=== PATIENT | female | born 1970 | race African-American/Black ===

== ENCOUNTER 2016-07-02 10:21 | Emergency (ER) | payer OTHER ==
[2016-07-02 10:50] VITALS: RESP 18
[2016-07-02] MEDS ORDERED: SODIUM CHLORIDE 0.9% 500 ML IV STA ×2 (11:06→13:23)
--- NOTE | 2016-07-02 11:06 | ED ---
General Adult HPI - General Chief complaint: Recheck/Abnormal Lab/Rx Stated complaint: abnormal labs Time Seen by Provider: 07/02/16 10:58 Source: patient, RN notes reviewed Mode of arrival: ambulatory Limitations: no limitations - History of Present Illness Initial comments: 45-year-old female presents to the emergency department with a chief complaint of abdominal pain. He has had this abdominal pain for about a month. Patient describes it across the upper abdomen. Patient states that she is an alcoholic and drinks about a bottle of wine every day. Patient states his energy refers tremors which is not common for her. Patient states she went for follow-up with her doctor and referred here due to elevated liver enzymes. Patient denies any fever chills cough cold This. Patient denies nausea vomiting patient was concerned or continued worsening symptoms that she thought that she should be evaluated. Patient denies any recent fever, chills, shortness of breath, chest pain, back pain, nausea vomiting, numbness or tingling, dysuria or hematuria, constipation or diarrhea, headaches or visual changes, or any other current symptoms. - Related Data Home Medications Medication Instructions Recorded Confirmed No Known Home Medications [No 07/02/16 07/02/16 Known Home Medications] Allergies Allergy/AdvReac Type Severity Reaction Status Date / Time Penicillins Allergy Unknown Verified 07/02/16 11:01 Review of Systems ROS Statement: Those systems with pertinent positive or pertinent negative responses have been documented in the HPI. ROS Other: All systems not noted in ROS Statement are negative. Past Medical History Past Medical History: No Reported History History of Any Multi-Drug Resistant Organisms: None Reported Past Surgical History: Tonsillectomy, Tubal Ligation Past Psychological History: Panic Disorder Smoking Status: Current every day smoker Past Alcohol Use History: Daily Past Drug Use History: None Reported General Exam - General Exam Comments Initial Comments: General: The patient is awake and alert, in no distress, and does not appear acutely ill. Eye: Pupils are equal, round and reactive to light, extra-ocular movements are intact; there is normal conjunctiva bilaterally. No signs of icterus. Ears, nose, mouth and throat: There are moist mucous membranes. Neck: The neck is supple, there is no tenderness. Cardiovascular: There is a regular rate and rhythm. No murmur, rub or gallop is appreciated. Respiratory: Lungs are clear to auscultation, respirations are non-labored, breath sounds are equal. No wheezes, stridor, rales, or rhonchi. Gastrointestinal: Soft, non-distended, non-tender abdomen without masses or organomegaly noted. There is no rebound or guarding present. No CVA tenderness. Bowel sounds are unremarkable. Back: There is no tenderness to palpation in the midline. There is no obvious deformity. No rashes noted. Musculoskeletal: Normal ROM, no tenderness, There is no pedal edema. There is no calf tenderness or swelling. Sensation intact. Pulses equal bilaterally 2+. Neurological: CN II-XII intact, There are no obvious motor or sensory deficits. Coordination appears grossly intact. Speech is normal. Skin: Skin is warm and dry and no rashes or lesions are noted. Psychiatric: Cooperative, appropriate mood & affect, normal judgment. Limitations: no limitations Course Vital Signs 07/02/16 07/02/16 10:44 16:10 Temperature 98.0 F 96.9 F L Pulse Rate 109 H 82 Respiratory 18 18 Rate Blood Pressure 126/87 125/88 O2 Sat by Pulse 97 99 Oximetry Medical Decision Making - Medical Decision Making 45-year-old female presents emergency Department chief complaint of abdominal pain. At this time lab work was reviewed. Patient does appear to have elevated liver enzymes. As well as dehydration. Patient elected to return to normal after some fluid bolus. We did give Ativan to help with her shakiness which is most likely due to her alcohol use. At this time we did discuss continued follow-up with her doctor. We discussed elevated lactate with is improving with hydration. We discussed continuing hydration. We did discuss to follow-up on the liver enzymes. We did discuss the dehydration component we did discuss appropriate care and return parameters. The patient stated that she understood and all questions have been answered. She states that she is feeling better and she will be discharged at this time. - Lab Data Result diagrams: 07/02/16 11:00 07/02/16 11:00 Lab Results 07/02/16 07/02/16 07/02/16 Range/Units 11:00 11:00 11:00 WBC 3.7 L (3.8-10.6) k/uL RBC 3.23 L (3.80-5.40) m/uL Hgb 11.4 (11.4-16.0) gm/dL Hct 36.4 (34.0-46.0) % MCV 112.7 H (80.0-100.0) fL MCH 35.2 H (25.0-35.0) pg MCHC 31.3 (31.0-37.0) g/dL RDW 16.6 H (11.5-15.5) % Plt Count 221 (150-450) k/uL Neutrophils % 67 % Lymphocytes % 22 % Monocytes % 7 % Eosinophils % 2 % Basophils % 0 % Neutrophils # 2.5 (1.3-7.7) k/uL Lymphocytes # 0.8 L (1.0-4.8) k/uL Monocytes # 0.2 (0-1.0) k/uL Eosinophils # 0.1 (0-0.7) k/uL Basophils # 0.0 (0-0.2) k/uL Manual Slide Review Performed Poikilocytosis (manual Present Anisocytosis Slight Macrocytosis Marked Target Cells Present PT 10.7 (9.0-12.0) sec INR 1.1 (<1.1) APTT 25.8 (22.0-30.0) sec Sodium 142 (137-145) mmol/L Potassium 4.1 (3.5-5.1) mmol/L Chloride 103 (98-107) mmol/L Carbon Dioxide 25 (22-30) mmol/L Anion Gap 14 mmol/L BUN <2 L (7-17) mg/dL Creatinine 0.38 L (0.52-1.04) mg/dL Est GFR (MDRD) Af Amer >60 (>60 ml/min/1.73 sqM) Est GFR (MDRD) Non-Af >60 (>60 ml/min/1.73 sqM) Glucose 89 (74-99) mg/dL Plasma Lactic Acid Maxime (0.7-2.0) mmol/L Calcium 9.2 (8.4-10.2) mg/dL Total Bilirubin 1.3 (0.2-1.3) mg/dL AST 441 H (14-36) U/L ALT 66 H (9-52) U/L Alkaline Phosphatase 291 H (38-126) U/L Ammonia (<30) umol/L Total Protein 7.4 (6.3-8.2) g/dL Albumin 3.9 (3.5-5.0) g/dL Amylase 99 (30-110) U/L Lipase 156 (23-300) U/L Urine Color Urine Appearance (Clear) Urine pH (5.0-8.0) Ur Specific Avant (1.001-1.035) Urine Protein (Negative) Urine Glucose (UA) (Negative) Urine Ketones (Negative) Urine Blood (Negative) Urine Nitrite (Negative) Urine Bilirubin (Negative) Urine Urobilinogen (<2.0) mg/dL Ur Leukocyte Esterase (Negative) Hepatitis A IgM Ab Hep Bs Antigen Hep B Core IgM Ab Hep C IgG Ab (Negative) 07/02/16 07/02/16 07/02/16 Range/Units 11:00 11:47 13:43 WBC (3.8-10.6) k/uL RBC (3.80-5.40) m/uL Hgb (11.4-16.0) gm/dL Hct (34.0-46.0) % MCV (80.0-100.0) fL MCH (25.0-35.0) pg MCHC (31.0-37.0) g/dL RDW (11.5-15.5) % Plt Count (150-450) k/uL Neutrophils % % Lymphocytes % % Monocytes % % Eosinophils % % Basophils % % Neutrophils # (1.3-7.7) k/uL Lymphocytes # (1.0-4.8) k/uL Monocytes # (0-1.0) k/uL Eosinophils # (0-0.7) k/uL Basophils # (0-0.2) k/uL Manual Slide Review Poikilocytosis (manual Anisocytosis Macrocytosis Target Cells PT (9.0-12.0) sec INR (<1.1) APTT (22.0-30.0) sec Sodium (137-145) mmol/L Potassium (3.5-5.1) mmol/L Chloride (98-107) mmol/L Carbon Dioxide (22-30) mmol/L Anion Gap mmol/L BUN (7-17) mg/dL Creatinine (0.52-1.04) mg/dL Est GFR (MDRD) Af Amer (>60 ml/min/1.73 sqM) Est GFR (MDRD) Non-Af (>60 ml/min/1.73 sqM) Glucose (74-99) mg/dL Plasma Lactic Acid Maxime 2.4 H* (0.7-2.0) mmol/L Calcium (8.4-10.2) mg/dL Total Bilirubin (0.2-1.3) mg/dL AST (14-36) U/L ALT (9-52) U/L Alkaline Phosphatase (38-126) U/L Ammonia 18 (<30) umol/L Total Protein (6.3-8.2) g/dL Albumin (3.5-5.0) g/dL Amylase (30-110) U/L Lipase (23-300) U/L Urine Color Yellow Urine Appearance Clear (Clear) Urine pH 8.0 (5.0-8.0) Ur Specific Avant 1.010 (1.001-1.035) Urine Protein Negative (Negative) Urine Glucose (UA) Negative (Negative) Urine Ketones 1+ H (Negative) Urine Blood Negative (Negative) Urine Nitrite Negative (Negative) Urine Bilirubin Negative (Negative) Urine Urobilinogen <2.0 (<2.0) mg/dL Ur Leukocyte Esterase Negative (Negative) Hepatitis A IgM Ab NEGATIVE Hep Bs Antigen Negative Hep B Core IgM Ab NEGATIVE Hep C IgG Ab Negative (Negative) 07/02/16 Range/Units 16:10 WBC (3.8-10.6) k/uL RBC (3.80-5.40) m/uL Hgb (11.4-16.0) gm/dL Hct (34.0-46.0) % MCV (80.0-100.0) fL MCH (25.0-35.0) pg MCHC (31.0-37.0) g/dL RDW (11.5-15.5) % Plt Count (150-450) k/uL Neutrophils % % Lymphocytes % % Monocytes % % Eosinophils % % Basophils % % Neutrophils # (1.3-7.7) k/uL Lymphocytes # (1.0-4.8) k/uL Monocytes # (0-1.0) k/uL Eosinophils # (0-0.7) k/uL Basophils # (0-0.2) k/uL Manual Slide Review Poikilocytosis (manual Anisocytosis Macrocytosis Target Cells PT (9.0-12.0) sec INR (<1.1) APTT (22.0-30.0) sec Sodium (137-145) mmol/L Potassium (3.5-5.1) mmol/L Chloride (98-107) mmol/L Carbon Dioxide (22-30) mmol/L Anion Gap mmol/L BUN (7-17) mg/dL Creatinine (0.52-1.04) mg/dL Est GFR (MDRD) Af Amer (>60 ml/min/1.73 sqM) Est GFR (MDRD) Non-Af (>60 ml/min/1.73 sqM) Glucose (74-99) mg/dL Plasma Lactic Acid Maxime 2.1 H (0.7-2.0) mmol/L Calcium (8.4-10.2) mg/dL Total Bilirubin (0.2-1.3) mg/dL AST (14-36) U/L ALT (9-52) U/L Alkaline Phosphatase (38-126) U/L Ammonia (<30) umol/L Total Protein (6.3-8.2) g/dL Albumin (3.5-5.0) g/dL Amylase (30-110) U/L Lipase (23-300) U/L Urine Color Urine Appearance (Clear) Urine pH (5.0-8.0) Ur Specific Avant (1.001-1.035) Urine Protein (Negative) Urine Glucose (UA) (Negative) Urine Ketones (Negative) Urine Blood (Negative) Urine Nitrite (Negative) Urine Bilirubin (Negative) Urine Urobilinogen (<2.0) mg/dL Ur Leukocyte Esterase (Negative) Hepatitis A IgM Ab Hep Bs Antigen Hep B Core IgM Ab Hep C IgG Ab (Negative) - Radiology Data Radiology results: report reviewed, image reviewed Disposition Clinical Impression: Dehydration, Elevated liver enzymes, Alcoholism Disposition: HOME SELF-CARE Condition: Stable Instructions: Alcohol Use Disorder (ED) Additional Instructions: Please use medication as discussed. Please follow up with family doctor if symptoms have not improved over the next two days. Please return to the emergency room if your symptoms increase or worsen or for any other concerns. Referrals: Carla Ngo MD [Primary Care Provider] - 1-2 days Time of Disposition: 16:55
[2016-07-02] MEDS ORDERED: LORazepam 2 MG/ML SYRINGE IV STA ×2 (11:07→15:16)
[2016-07-02 11:33] LABS: Anisocytosis Slight; Basophils % (A) 0 %; CH 35.6; CHCM 31.7; Eosinophils # (A) 0.1 k/uL (0-0.7); Eosinophils % (A) 2 %; HCT 36.4 % (34.0-46.0); HDW 2.13; HGB 11.4 gm/dL (11.4-16.0); Luc # (Auto) 0.09; Luc % (Auto) 2; Lymphocytes # (A) 0.8 k/uL (1.0-4.8); Lymphocytes % (A) 22 %; MCH 35.2 pg (25.0-35.0); MCHC 31.3 g/dL (31.0-37.0); MCV 112.7 fL (80.0-100.0); Macrocytosis Marked; Mean Platelet Volume 7.9; Monocytes # (A) 0.2 k/uL (0-1.0); Monocytes % (A) 7 %; Neutrophils # (A) 2.5 k/uL (1.3-7.7); Neutrophils % (A) 67 %; RBC 3.23 m/uL (3.80-5.40); RDW 16.6 % (11.5-15.5); WBC 3.7 k/uL (3.8-10.6); WBC (Perox) 3.79
[2016-07-02 11:45] LABS: INR 1.1 (<1.1); Partial Thromboplastin Time 25.8 sec (22.0-30.0); Prothrombin Time 10.7 sec (9.0-12.0)
[2016-07-02 11:47] LABS: ALT 66 U/L (9-52); AST 441 U/L (14-36); Alkaline Phosphatase 291 U/L (38-126); Amylase 99 U/L (30-110); Anion Gap 14 mmol/L; Blood Urea Nitrogen <2 mg/dL (7-17); Calcium 9.2 mg/dL (8.4-10.2); Carbon Dioxide 25 mmol/L (22-30); Chloride 103 mmol/L (98-107); Glucose 89 mg/dL (74-99); Non-African American GFR(MDRD) >60 (>60 ml/min/1.73 sqM); Potassium 4.1 mmol/L (3.5-5.1); Sodium 142 mmol/L (137-145); Total Bilirubin 1.3 mg/dL (0.2-1.3); Total Protein 7.4 g/dL (6.3-8.2)
[2016-07-02] MEDS ORDERED: HYDROmorphone 1 MG/ML 1 ML SYRINGE IVP STA (11:53)
[2016-07-02 12:04] LABS: Manual Review Performed
[2016-07-02 12:08] LABS: Target Cells Present
--- NOTE | 2016-07-02 12:48 | XR ---
EXAMINATION TYPE: XR abdomen 2V DATE OF EXAM: 07/02/2016 12:19 PM CLINICAL HISTORY: Elevated liver enzymes with upper abdominal tightness and pain. TECHNIQUE: Supine and upright views of the abdomen are obtained. COMPARISON: None. FINDINGS: Scattered gas is seen in non-distended stomach and small bowel loops. Gas and fecal mater ial is seen in non-distended colon. There is a right-sided pelvic phleboliths. No pneumoperitoneum i s seen. No suspicious calcification is identified. Lung bases are clear. Visualized osseous structure s are intact. IMPRESSION: Overall nonobstructive bowel gas pattern.
--- NOTE | 2016-07-02 13:05 | US ---
EXAMINATION TYPE: US abdomen limited DATE OF EXAM: 07/02/2016 12:45 PM COMPARISON: NONE CLINICAL HISTORY: RUQ pain. Abdominal pain EXAM MEASUREMENTS: Liver Length: 20.4 cm Gallbladder Wall: 0.3 cm CBD: 0.4 cm Right Kidney: 12.8 x 3.3 x 4.2 cm Pancreas: limited evaluation due to overlying bowel Liver: enlarged, attenuating, heterogeneous Gallbladder: echogenic material noted dependently Evidence for sonographic Joyner's sign: no CBD: appears wnl Right Kidney: enlarged, no evidence of hydronephrosis IMPRESSION: Fatty liver. Otherwise limited evaluation.
[2016-07-02 13:23] LABS: Hepatitis B Surface Ag Index 0.05
[2016-07-02 13:29] LABS: Hepatitis B Core IgM Index 0.04
[2016-07-02 13:41] LABS: Hepatitis C Virus IgG Index 0.02
[2016-07-02 13:42] LABS: Hepatitis C Virus IgG Ab Negative (Negative)
[2016-07-02 14:42] LABS: Appearance,Urine Clear (Clear); Bilirubin,Urine Negative (Negative); Glucose,Urine (UA) Negative (Negative); Ketones,Urine 1+ (Negative); Leukocyte Esterase,Urine Negative (Negative); Nitrite,Urine Negative (Negative); Protein,Urine Negative (Negative); UA Billing (MACRO vs. MICRO) CHEM; Urobilinogen,Urine <2.0 mg/dL (<2.0)
[2016-07-02 16:11] VITALS: BP 125/88; PULSE 82; TEMP 96.9
== END 2016-07-02 17:05 | disposition home or self-care (01) ==
LOC: EC 10:21
DX: F10.20 Alcohol dependence, uncomplicated (principal); E86.0 Dehydration; R74.8 Abnormal levels of other serum enzymes; R10.9 Unspecified abdominal pain; F17.200 Nicotine dependence, unspecified, uncomplicated; Z88.0 Allergy status to penicillin
CPT/HCPCS: 36415; 80053; 80074; 82140; 82150; 83605; 83690; 85025; 85610; 85730; 81003; 74020; 76705; 99284; 96374; 96375; 96376; 96361 ×2; J2060; J1170

== ENCOUNTER → 2016-07-03 | Outpatient (CLI) | payer OTHER ==
--- NOTE | 2016-07-04 09:59 | MM ---
Reason for exam: screening (asymptomatic). Last mammogram was performed 2 years and 1 month ago. History: Patient is postmenopausal. Family history of breast cancer in mother at age 64. Physical Findings: A clinical breast exam by your physician is recommended on an annual basis and results should be correlated with mammographic findings. MG Screening Mammo w CAD Bilateral CC and MLO view(s) were taken. Prior study comparison: June 14, 2014, bilateral MG screening mammo w CAD. The breast tissue is extremely dense which could obscure a lesion on mammography. Vascular calcifications. No significant changes when compared with prior studies. ASSESSMENT: Benign, BI-RAD 2 RECOMMENDATION: Routine screening mammogram of both breasts in 1 year.
== END | disposition home or self-care (01) ==
LOC: RADMAMWWP 08:50
PROVIDERS: ATTEND Family Medicine
DX: Z12.31 Encounter for screening mammogram for malignant neoplasm of breast (principal)

== ENCOUNTER 2016-10-19 16:29 | Observation (INO) | payer OTHER ==
[2016-10-19] MEDS ORDERED: ONDANSETRON 4 MG/2 ML VIAL IVP STA (16:49)
[2016-10-19] MEDS ORDERED: SODIUM CHLORIDE 0.9% 1,000 ML IV STA (16:49)
--- NOTE | 2016-10-19 16:52 | ED ---
General Adult HPI - General Chief complaint: Nausea/Vomiting/Diarrhea Stated complaint: Vomiting Time Seen by Provider: 10/19/16 16:30 Source: patient, RN notes reviewed Mode of arrival: wheelchair Limitations: no limitations - History of Present Illness Initial comments: This is a 45-year-old female who presents emergency department stating that she has no medical problems except for some anxiety. Patient comes in today stating that for the last 4 days she's not been able to keep any solid foods down. Patient states she started noticing a decrease in her diet about 3 weeks ago. Patient has not followed up with primary medical care doctor. Patient denies any fever chills per patient denies any diarrhea. Patient denies any abdominal pain. Patient denies any dysuria hematuria urinary frequency. Patient denies any difficulty breathing or shortness of breath. Patient states aside from the vomiting she has no other symptoms. Patient does feel weaker because she hasn't eaten for days. - Related Data Home Medications Medication Instructions Recorded Confirmed No Known Home Medications [No 07/02/16 10/19/16 Known Home Medications] Allergies Allergy/AdvReac Type Severity Reaction Status Date / Time Penicillins Allergy Swelling Verified 10/19/16 17:00 Review of Systems ROS Statement: Those systems with pertinent positive or pertinent negative responses have been documented in the HPI. ROS Other: All systems not noted in ROS Statement are negative. Past Medical History Past Medical History: No Reported History History of Any Multi-Drug Resistant Organisms: None Reported Past Surgical History: Tonsillectomy, Tubal Ligation Past Psychological History: Anxiety, Panic Disorder Smoking Status: Current every day smoker Past Alcohol Use History: Daily Past Drug Use History: None Reported General Exam - General Exam Comments Initial Comments: GENERAL: Patient is nontoxic and well-hydrated and is in no acute distress. Patient is cachectic in appearance ENT: Neck is soft and supple. No significant lymphadenopathy is noted. Oropharynx is clear. Moist mucous membranes. Neck has full range of motion without eliciting any pain. EYES: The sclera were anicteric and conjunctiva were pink and moist. Extraocular movements were intact and pupils were equal round and reactive to light. Eyelids were unremarkable. PULMONARY: Unlabored respirations. Good breath sounds bilaterally. No audible rales rhonchi or wheezing was noted. CARDIOVASCULAR: There is a regular rate and rhythm without any murmurs gallops or rubs. ABDOMEN: Soft and nontender with normal bowel sounds. No palpable organomegaly was noted. There is no palpable pulsatile mass. SKIN: Skin is clear with no lesions or rashes and otherwise unremarkable. NEUROLOGIC: Patient is alert and oriented x3. Cranial nerves II through XII are grossly intact. Motor and sensory are also intact. Normal speech, volume and content. Symmetrical smile. MUSCULOSKELETAL: Normal extremities with adequate strength and full range of motion. LYMPHATICS: No significant lymphadenopathy is noted PSYCHIATRIC: Normal psychiatric evaluation. Limitations: no limitations Course Vital Signs 10/19/16 10/19/16 16:32 18:03 Temperature 97.2 F L Pulse Rate 135 H 110 H Respiratory 18 18 Rate Blood Pressure 97/69 126/89 O2 Sat by Pulse 99 100 Oximetry Medical Decision Making - Lab Data Result diagrams: 10/19/16 17:06 10/19/16 17:06 Lab Results 10/19/16 10/19/16 10/19/16 Range/Units 17:06 17:06 18:33 WBC 7.9 (3.8-10.6) k/uL RBC 3.83 (3.80-5.40) m/uL Hgb 12.9 (11.4-16.0) gm/dL Hct 37.3 (34.0-46.0) % MCV 97.4 (80.0-100.0) fL MCH 33.7 (25.0-35.0) pg MCHC 34.5 (31.0-37.0) g/dL RDW 14.5 (11.5-15.5) % Plt Count 200 (150-450) k/uL Neutrophils % 83 % Lymphocytes % 8 % Monocytes % 7 % Eosinophils % 1 % Basophils % 0 % Neutrophils # 6.6 (1.3-7.7) k/uL Lymphocytes # 0.6 L (1.0-4.8) k/uL Monocytes # 0.5 (0-1.0) k/uL Eosinophils # 0.0 (0-0.7) k/uL Basophils # 0.0 (0-0.2) k/uL Sodium 137 (137-145) mmol/L Potassium 2.7 L* (3.5-5.1) mmol/L Chloride 92 L (98-107) mmol/L Carbon Dioxide 15 L (22-30) mmol/L Anion Gap 30 mmol/L BUN 8 (7-17) mg/dL Creatinine 1.04 (0.52-1.04) mg/dL Est GFR (MDRD) Af Amer >60 (>60 ml/min/1.73 sqM) Est GFR (MDRD) Non-Af 57 (>60 ml/min/1.73 sqM) Glucose 220 H (74-99) mg/dL Calcium 11.3 H (8.4-10.2) mg/dL Total Bilirubin 4.6 H (0.2-1.3) mg/dL AST 180 H (14-36) U/L ALT 56 H (9-52) U/L Alkaline Phosphatase 374 H (38-126) U/L Total Protein 10.6 H (6.3-8.2) g/dL Albumin 5.3 H (3.5-5.0) g/dL Amylase 91 (30-110) U/L Lipase 301 H (23-300) U/L Serum Alcohol <10 mg/dL Disposition Clinical Impression: Alcoholism, Alcoholic hepatitis, Acute vomiting Disposition: ADMITTED IP TO THIS HOSP Referrals: Carla Ngo MD [Primary Care Provider] - 1-2 days Time of Disposition: 19:12
[2016-10-19 17:22] LABS: Basophils % (A) 0 %; CH 34.1; CHCM 35.2; Eosinophils % (A) 1 %; HCT 37.3 % (34.0-46.0); HDW 2.76; HGB 12.9 gm/dL (11.4-16.0); Luc # (Auto) 0.15; Luc % (Auto) 2; Lymphocytes # (A) 0.6 k/uL (1.0-4.8); Lymphocytes % (A) 8 %; MCH 33.7 pg (25.0-35.0); MCHC 34.5 g/dL (31.0-37.0); MCV 97.4 fL (80.0-100.0); Mean Platelet Volume 8.1; Monocytes # (A) 0.5 k/uL (0-1.0); Monocytes % (A) 7 %; Neutrophils # (A) 6.6 k/uL (1.3-7.7); Neutrophils % (A) 83 %; RBC 3.83 m/uL (3.80-5.40); RDW 14.5 % (11.5-15.5); WBC 7.9 k/uL (3.8-10.6); WBC (Perox) 7.89
[2016-10-19 17:36] LABS: ALT 56 U/L (9-52); AST 180 U/L (14-36); Alkaline Phosphatase 374 U/L (38-126); Amylase 91 U/L (30-110); Anion Gap 30 mmol/L; Blood Urea Nitrogen 8 mg/dL (7-17); Calcium 11.3 mg/dL (8.4-10.2); Carbon Dioxide 15 mmol/L (22-30); Chloride 92 mmol/L (98-107); Glucose 220 mg/dL (74-99); Non-African American GFR(MDRD) 57 (>60 ml/min/1.73 sqM); Sodium 137 mmol/L (137-145); Total Bilirubin 4.6 mg/dL (0.2-1.3); Total Protein 10.6 g/dL (6.3-8.2)
[2016-10-19 17:38] LABS: Potassium 2.7 mmol/L (3.5-5.1)
[2016-10-19] MEDS ORDERED: POTASSIUM CHLORIDE ER 20 MEQ TAB.ER PO STA (17:40)
[2016-10-19] MEDS ORDERED: POTASSIUM CHLORIDE 10 MEQ, LIDOCAINE 2% INJ 10 MG in SODIUM CHLORIDE 0.9% 100 ML IVPB STA (17:47)
--- NOTE | 2016-10-19 17:58 | XR ---
Exam: Abdomen complete 2 views the abdomen were obtained FINDINGS: There is a nonspecific bowel gas pattern. There is a relative paucity of bowel gas in right hemiabdom en of unknown significance. There is a so-called Ezra's lobe. There is no evidence of a bowel obstr uction. There is no evidence of impaction. Osseous structures appear to have multiple lucencies which is of unknown significance or etiology. Correlation is recommended. IMPRESSION: There is a relative paucity of bowel gas. Osseous structures have questionable lucencies. Correlation with previous studies is recommended.
[2016-10-19 18:53] LABS: Alcohol <10 mg/dL
--- NOTE | 2016-10-19 19:04 | US ---
EXAMINATION TYPE: US gallbladder DATE OF EXAM: 10/19/2016 COMPARISON: NONE CLINICAL HISTORY: Pain. Vomiting x 5 days, loss of appetite EXAM MEASUREMENTS: Liver Length: 18.8 cm Gallbladder Wall: 0.3 cm CBD: 0.3 cm Right Kidney: 13.4 x 3.4 x 4.9 cm Pancreas: limited evaluation Liver: enlarged, attenuating Gallbladder: hydropic (measuring 10.4cm), sludge noted Evidence for sonographic Joyner's sign: No CBD: appears wnl Right Kidney: enlarged, no evidence of hydronephrosis or mass IMPRESSION: The gallbladder appears distended and filled with sludge. There is no pericholecystic flu id and the common duct is within normal limits. Heterogeneous liver is again noted which has been pre viously described.
[2016-10-19 19:11] LABS: Hepatitis B Surface Ag Index 0.05
[2016-10-19] MEDS ORDERED: SODIUM CHLORIDE 0.9% 1,000 ML IV ONE (19:13)
[2016-10-19] MEDS ORDERED: ONDANSETRON 4 MG/2 ML VIAL IVP PRN (19:16)
[2016-10-19 19:17] LABS: Hepatitis B Core IgM Index 0.03
[2016-10-19 19:29] LABS: Hepatitis C Virus IgG Ab Negative (Negative); Hepatitis C Virus IgG Index 0.06
[2016-10-19 19:41] LABS: Appearance,Urine Cloudy (Clear); Bacteria,Urine Many /hpf; Bilirubin,Urine 2+ (Negative); Glucose,Urine (UA) Trace (Negative); Ketones,Urine 2+ (Negative); Leukocyte Esterase,Urine Negative (Negative); Mucus,Urine Few /hpf; Nitrite,Urine Negative (Negative); PH, Urine 6.5 (5.0-8.0); Particle Count 12387; Protein,Urine 2+ (Negative); RBC,Urine 2 /hpf (0-5); Specific Gravity,Urine 1.019 (1.001-1.035); Squamous Epithelial Cell,Urine 12 /hpf (0-4); UA Billing (MACRO vs. MICRO) MICRO; WBC,Urine 6 /hpf (0-5)
[2016-10-19 20:02] VITALS: BMI 17.9
[2016-10-19 21:30] LABS: Anion Gap 22 mmol/L; Blood Urea Nitrogen 8 mg/dL (7-17); Calcium 9.9 mg/dL (8.4-10.2); Carbon Dioxide 16 mmol/L (22-30); Chloride 100 mmol/L (98-107); Glucose 111 mg/dL (74-99); Magnesium 1.7 mg/dL (1.6-2.3); Non-African American GFR(MDRD) >60 (>60 ml/min/1.73 sqM); Sodium 138 mmol/L (137-145)
[2016-10-19 21:41] LABS: Phosphorus 0.8 mg/dL (2.5-4.5)
[2016-10-19] MEDS ORDERED: Phosphorus Replacement Protoco 1 EACH MISC MISCELLANE PRN (21:54)
[2016-10-19] MEDS ORDERED: Magnesium Replacement Protocol 1 EACH MISC MISCELLANE PRN (21:55)
[2016-10-19] MEDS ORDERED: HYDROmorphone 1 MG/ML 1 ML SYRINGE IVP PRN (22:01)
[2016-10-19] MEDS ORDERED: THIAMINE 100 MG/ML 2 ML VIAL IM STA (22:03)
[2016-10-19] MEDS ORDERED: LORazepam 2 MG/ML INJ IV PRN ×3 (22:03)
[2016-10-19] MEDS: POTASSIUM CHLORIDE 20 MEQ, LIDOCAINE 2% INJ 20 MG in SODIUM CHLORIDE 0.9% 100 ML IVPB SCH (23:12)
[2016-10-19] MEDS: MAGNESIUM SULFATE-D5W PMX 1 GM in DEXTROSE/WATER 1 100ML.BAG IVPB SCH (23:12)
[2016-10-20] MEDS: MAGNESIUM SULFATE-D5W PMX 1 GM in DEXTROSE/WATER 1 100ML.BAG IVPB SCH (00:12)
[2016-10-20] MEDS: SODIUM PHOSPHATE 10 MMOL in SODIUM CHLORIDE 0.9% 250 ML IVPB SCH ×3 (01:50→10:48)
[2016-10-20] MEDS: POTASSIUM CHLORIDE 20 MEQ, LIDOCAINE 2% INJ 20 MG in SODIUM CHLORIDE 0.9% 100 ML IVPB SCH ×2 (04:24→06:33)
--- NOTE | 2016-10-20 11:29 | CONS ---
REQUESTING PHYSICIAN: Dr. Ngo REASON FOR CONSULTATION: Elevated liver enzymes. HISTORY OF PRESENT ILLNESS: The patient is a 45-year-old -[place] female who was admitted to the hospital because of not feeling well, nausea, vomiting for the last five days duration. She has a history of heavy alcohol abuse for the last 10 years and she initially drinks a litter of liquor a day. She never had any history of liver disease in the past. No history of jaundice or hepatitis. She started feeling week and tired and had severe nausea and vomiting for the last four days. She has been having decreased appetite for about 3 weeks. She reports no abdominal pain. Denies any rectal bleeding or melena. She did have some diarrhea yesterday. She came to the emergency room and was noted to have elevated serum transaminases and hence, we are consulted in regards to this issue. No prior history of chronic liver disease. This morning she is feeling better. Nausea and vomiting has resolved. She states she is very hungry. PAST MEDICAL HISTORY: Unremarkable. PAST SURGICAL HISTORY: Tonsillectomy. MEDICATIONS AT HOME: None. ALLERGIES: PENICILLIN. SOCIAL HISTORY: Alcohol use on a daily basis as described above. Chronic smoker. FAMILY HISTORY: Unremarkable. REVIEW OF SYSTEMS: CARDIOPULMONARY: No chest pain, shortness of breath. GENITOURINARY: No dysuria or hematuria. MUSCULOSKELETAL: Unremarkable. SKIN: Unremarkable. ENDOCRINE: Unremarkable. PSYCHIATRIC: Unremarkable. NEUROLOGICAL: Unremarkable. ENT/VISION: Unremarkable. CONSTITUTIONAL: No recent weight loss. No fever, chills or night sweats. PHYSICAL EXAMINATION: She appears comfortable in no apparent distress. Vital signs are stable. Blood pressure 97/69, pulse rate 135, temperature 97.2. HEENT: Unremarkable. Conjunctivae pink. Sclerae anicteric. Oral cavity no lesions. NECK: No JVD. No lymph node enlargement. CHEST: Clear to auscultation. HEART: Regular rate and rhythm. ABDOMEN: Soft, bowel sounds are positive. No organomegaly. The liver was hard in consistency and was palpable below the right costal margin. No free fluid noted. EXTREMITIES: No pedal edema. SKIN: No rashes. NEURO: Alert, oriented x3. No focal deficits. LABS: At the time of admission to the hospital; WBC 7.9, hemoglobin 12.3, platelets are normal. Sodium 137, potassium 2.7, chloride 92, CO2 is 15. BUN and creatinine are within normal limits. T-bili is 4.6, AST 180, ALT 556, alk phos 374. Albumin 5.3, amylase and lipase 91 and 301 respectively. Hepatitis serologies for A, B and C were negative. Serum alcohol level was less than 10. Ultrasound of the abdomen showed slightly distended gallbladder filled with sludge but no pericholecystic fluid noted. CBD is within normal limits. IMPRESSION: This is a lady with history of heavy alcohol abuse of several years duration presents to the hospital with fatigue, weakness, not feeling well, and nausea and vomiting for the last one week duration. Her biochemical picture is consistent with acute alcoholic hepatitis. RECOMMENDATIONS: I had a lengthy discussion with the patient regarding acute alcoholic hepatitis and at this time I encouraged her that she remain abstinent from alcohol. For now we will start her on a regular diet and continue with symptomatic and supportive care with antiemetics and proton pump inhibitors. Once the symptoms improve she can be discharged home with an outpatient follow up on close basis. Thank you for this consultation. LAZARUS
[2016-10-20] MEDS: THIAMINE 100 MG TAB PO SCH ×2 (12:14→16:44)
[2016-10-20] MEDS ORDERED: ALPRAZolam 0.25 MG TAB PO PRN (16:10)
[2016-10-20] MEDS ORDERED: HYDROcodone/APAP 5-325MG 1 EACH TAB PO PRN (16:10)
[2016-10-20] MEDS ORDERED: TEMAZEPAM 15 MG CAP PO PRN (16:10)
[2016-10-20] MEDS: NICOTINE 14MG/24HR PATCH TRANSDERM SCH (16:44)
[2016-10-20] MEDS: 0.9% NACL WITH KCL 40 MEQ/L 1,000 ML IV SCH (16:44)
[2016-10-20] MEDS: POTASSIUM CHLORIDE 10 MEQ, LIDOCAINE 2% INJ 10 MG in SODIUM CHLORIDE 0.9% 100 ML IV SCH ×2 (16:44→18:02)
--- NOTE | 2016-10-20 19:30 | HP ---
DATE OF ADMISSION: 10/19/16 CHIEF COMPLAINT: Nausea and vomiting, diarrhea, abdominal discomfort. HISTORY OF PRESENT ILLNESS: This 45-year-old woman with past medical history of multiple medical problems including history of ETOH, history of anxiety, panic attacks, being followed by Dr. Carla Ngo in the outpatient setting was complaining of upper abdominal pain and nausea and vomiting also. The patient unable to keep anything down. The patient came to [facility] and was admitted to the hospital for further evaluation and treatment. There is no history of fever, rigors, chills. No history of headache, loss of consciousness or seizures. The patient has significant history of ETOH and last ETOH abuse was about 7 days ago according to him. On admission, AST and ALT was elevated indicating acute alcoholic hepatitis. The patient was also dehydrated. Past medical history of ETOH. Anxiety. Panic attacks. Medications prior to admission are: None. ALLERGIES: LATEX, PENICILLIN. FAMILY HISTORY: History of cancer, left mastectomy in the family. Bone cancer. SOCIAL HISTORY: History of smoking and alcohol. REVIEW OF SYSTEMS: HEENT: No diminished vision. No diminished hearing. Cardiovascular system: No angina or palpitations. Respiratory: As mentioned earlier. GI: As mentioned earlier. : No dysuria. Nervous system: No numbness or weakness. Allergy/Immunology: No asthma or hayfever. Musculoskeletal: As mentioned earlier. Hematology/oncology: No history of anemia. Endocrine: No history of diabetes or hypothyroidism. Constitutional : As mentioned earlier. Dermatology: Negative. Rheumatology: Negative. Psychiatry: As mentioned earlier. PHYSICAL EXAMINATION: The patient is alert and oriented times three. Pulse 101. Blood pressure 96/62. Respiratory rate 16, temperature 98.5 degrees. Pulse ox 92% on room air. HEENT: Conjunctivae normal. Oral mucosa moist. NECK: No JVD. Cardiovascular: S1, S2 muffled. Respiratory: Breath sounds diminished at the bases. A few scattered rhonchi and no crackles. Abdomen is soft. Nontender. No mass palpable. Legs: No edema. No swelling. Nervous system: Higher functions as mentioned earlier. Moves all four limbs. No focal motor or sensory deficits. Lymphatics: No lymph nodes palpable in the neck, axillae or groin. SKIN: No ulcer, rash or bleeding. LABS: At this time shows CBC within normal limits. Potassium 3. Phosphorus 0.8. AST 180. ALT 56. UA noted. Hepatitis panel is negative. ASSESSMENT: 1. Abdominal pain and nausea, possible acute gastritis and acute alcoholic hepatitis. 2. History of ETOH. 3. History of hypokalemia. 4. Hypophosphatemia. 5. Hypobilirubinemia. 6. History of nicotine dependence. 7. History of anxiety, panic disorder. RECOMMENDATIONS AND DISCUSSION: Continue the current medications, continue symptomatic treatment. Otherwise, we will monitor the patient closely. Repeat labs will be ordered. Alcohol cessation advised. Recommended. Guarded prognosis because of multiple medical issues. Further recommendations o follow. Ativan. MTDD
[2016-10-20] MEDS: HEPARIN SODIUM,PORCINE 5,000 UNIT/ML 1 ML VIAL SQ SCH (20:20)
[2016-10-21] MEDS: 0.9% NACL WITH KCL 40 MEQ/L 1,000 ML IV SCH (05:39)
[2016-10-21] MEDS ORDERED: PANTOPRAZOLE 40 MG TABLET PO SCH (07:30)
[2016-10-21 07:41] LABS: ALT 52 U/L (9-52); AST 275 U/L (14-36); Alkaline Phosphatase 196 U/L (38-126); Anion Gap 7 mmol/L; Blood Urea Nitrogen <2 mg/dL (7-17); Calcium 7.5 mg/dL (8.4-10.2); Carbon Dioxide 23 mmol/L (22-30); Chloride 103 mmol/L (98-107); Glucose 71 mg/dL (74-99); Non-African American GFR(MDRD) >60 (>60 ml/min/1.73 sqM); Potassium 3.1 mmol/L (3.5-5.1); Sodium 133 mmol/L (137-145); Total Bilirubin 2.6 mg/dL (0.2-1.3); Total Protein 5.4 g/dL (6.3-8.2)
[2016-10-21 07:56] LABS: Basophils % (A) 0 %; CH 33.4; CHCM 33.3; Eosinophils # (A) 0.1 k/uL (0-0.7); Eosinophils % (A) 2 %; HCT 23.2 % (34.0-46.0); HDW 2.78; Luc # (Auto) 0.07; Luc % (Auto) 2; Lymphocytes # (A) 0.8 k/uL (1.0-4.8); Lymphocytes % (A) 22 %; MCH 33.6 pg (25.0-35.0); MCHC 33.4 g/dL (31.0-37.0); MCV 100.6 fL (80.0-100.0); Macrocytosis Slight; Monocytes # (A) 0.3 k/uL (0-1.0); Monocytes % (A) 7 %; Neutrophils # (A) 2.4 k/uL (1.3-7.7); Neutrophils % (A) 66 %; RBC 2.31 m/uL (3.80-5.40); RDW 14.8 % (11.5-15.5); WBC 3.6 k/uL (3.8-10.6); WBC (Perox) 3.69
[2016-10-21 08:01] LABS: HGB 7.8 gm/dL (11.4-16.0)
[2016-10-21 08:21] LABS: Phosphorus 0.7 mg/dL (2.5-4.5)
[2016-10-21 08:34] VITALS: RESP 18
[2016-10-21] MEDS: NICOTINE 14MG/24HR PATCH TRANSDERM SCH (08:38)
[2016-10-21] MEDS: HEPARIN SODIUM,PORCINE 5,000 UNIT/ML 1 ML VIAL SQ SCH (08:38)
[2016-10-21] MEDS: POTASSIUM CHLORIDE 10 MEQ, LIDOCAINE 2% INJ 10 MG in SODIUM CHLORIDE 0.9% 100 ML IV SCH ×2 (09:20→10:38)
[2016-10-21] MEDS: SODIUM PHOSPHATE 10 MMOL in SODIUM CHLORIDE 0.9% 250 ML IVPB SCH ×3 (11:51→16:00)
[2016-10-21] MEDS: THIAMINE 100 MG TAB PO SCH (11:55)
[2016-10-21] MEDS ORDERED: POTASSIUM CHLORIDE 20 MEQ, LIDOCAINE 2% INJ 20 MG in SODIUM CHLORIDE 0.9% 100 ML IVPB SCH (14:00)
[2016-10-21] MEDS: POTASSIUM CHLORIDE ER 20 MEQ TAB.ER PO SCH ×2 (14:40→16:15)
[2016-10-21 15:44] VITALS: BP 90/59; PULSE 88; TEMP 98.5
--- NOTE | 2016-10-24 12:24 | DS ---
FINAL DIAGNOSES: 1. Abdominal pain, nausea, possible acute gastritis and acute alcoholic hepatitis. 2. History of ETOH. 3. History of hypokalemia. 4. Hypophosphatemia. 5. Hyperbilirubinemia. DISCHARGE DISPOSITION: The patient is being discharged in stable condition with guarded prognosis. HISTORY OF PRESENT ILLNESS: This 45-year-old woman with past medical history of multiple medical problems, admitted to the hospital with nausea and vomiting , possible acute gastritis. The patient treated symptomatically. The patient also had hypokalemia. On exam, vital signs are stable. Cardiovascular: S1, S2 normal. Abdomen soft. Nontender. Nervous system: No focal deficits. Total bilirubin is 2.6, AST 275. GI evaluation has been sought. Recommended outpatient follow-up. The patient improved significantly. Recommended to stop the alcohol. Otherwise, recommend close follow-up in the outpatient setting. DISCHARGE ADVICE AND MEDICATIONS: 1. Diet is cardiac. 2. Activity limited until follow-up. 3. Follow-up with Dr. Carla Ngo in two to three days. Medications are: 1. Folic acid 1 mg daily. 2. Multivitamins one po daily. 3. Habitrol 14 daily. 4. Protonix 40 mg daily. 5. Vitamin B1 100 mg po daily. 6. Ativan 1 mg po b.i.d. prn. Follow-up labs, CBC, BMP with Dr. Carla Ngo in one to two days. Follow- up with Dr. Blank as advised for further evaluation. [facility]
--- NOTE | 2016-10-29 14:53 | PN ---
DATE OF SERVICE: 10/21/2016 Patient is a 45-year-old female with acute alcoholic hepatitis. She has a history of heavy alcohol use. Came into the hospital with nausea, vomiting, abdominal pain and not feeling well for the last few weeks duration. She is feeling a little bit better today. The nausea and vomiting has subsided. She was started on liquid diet yesterday, tolerated well. On examination, she appears comfortable, in no apparent distress. Vital signs are stable. Blood pressure is 95/56, pulse is 98, temperature is 97.5. HEENT examination is unremarkable. Conjunctivae are pink, oral cavity no lesions. NECK: No JVD or lymph node enlargement. Chest was clear to auscultation. HEART: Regular rate and rhythm. Abdomen is soft, is nontender, nondistended. Liver and spleen are not palpable. Bowel sounds are positive, no organomegaly. Extremities no pedal edema. SKIN: No rashes. NEURO: Alert and oriented x3. No focal deficits. LABS: WBC 3.6, hemoglobin 7.8, platelets are 161. AST is 275, ALT is 52, alk phos is 196 and T-bili is 2.6. IMPRESSION: 1. Acute alcoholic hepatitis, gradually improving. 2. Anemia, probably related to anemia of chronic disease, clinically does have any evidence of active ongoing bleeding. RECOMMENDATIONS: 1. I had a lengthy discussion with the patient regarding abstinence from alcohol. 2. Repeat CBC in the morning. 3. Advanced diet as tolerated. Cholesterol diet. 4. Will follow her closely during the hospital stay. Thank you for this consultation. LAZARUS
== END 2016-10-21 16:45 | disposition home or self-care (01) ==
LOC: EC 16:29 → INTOOBSV 19:13 → 5MS5E 19:13 → UNDODISIN 10-21 16:54
PROVIDERS: ADMIT Hospitalist; ATTEND Hospitalist
DX: K70.10 Alcoholic hepatitis without ascites (principal); E83.39 Other disorders of phosphorus metabolism; D64.9 Anemia, unspecified; E86.0 Dehydration; E87.6 Hypokalemia; F41.0 Panic disorder [episodic paroxysmal anxiety]; F17.200 Nicotine dependence, unspecified, uncomplicated; Z88.0 Allergy status to penicillin; Z91.040 Latex allergy status; Y90.0 Blood alcohol level of less than 20 mg/100 ml
CPT/HCPCS: 96376; 96361 ×2; 96366 ×2; 96367; 96372 ×3; 96365; 96375; 99285; 36415; 97161; 80053 ×2; 80048; 80074; 82150; 83690; 83735 ×3; 84100 ×2; 84132; 85025 ×2; 81001; 80320; 74000; 76705; G0378 ×3; J2001 ×3; J1644 ×2; J3411; J2405 ×2; J3480 ×3; J3475 ×2; 96368

== ENCOUNTER 2018-08-29 17:07 | Inpatient (IN) | payer OTHER ==
[2018-08-29] MEDS ORDERED: SODIUM CHLORIDE 0.9% 1,000 ML IV STA (17:33)
--- NOTE | 2018-08-29 18:11 | ED ---
General Adult HPI - General Chief complaint: Weakness Stated complaint: Foot Infection Time Seen by Provider: 08/29/18 17:30 Source: patient, RN notes reviewed, old records reviewed Mode of arrival: wheelchair Limitations: no limitations - History of Present Illness Initial comments: 47-year-old female history of alcoholism presenting with chief complaint of yellowing of the eyes. Patient states her symptoms have progressed over the past 2 weeks. She states she is drinking approximately 4 glasses of wine daily. She does report some abdominal distention. She reports some nausea, no significant vomiting. No abdominal pain. No chest pain or dyspnea. She does report generalized weakness. - Related Data Home Medications Medication Instructions Recorded Confirmed Thiamine [Vitamin B-1] 100 mg PO HS 08/29/18 08/29/18 Allergies Allergy/AdvReac Type Severity Reaction Status Date / Time latex Allergy Rash/Hives Verified 08/29/18 17:56 Penicillins Allergy Swelling Verified 08/29/18 17:56 Review of Systems ROS Statement: Those systems with pertinent positive or pertinent negative responses have been documented in the HPI. ROS Other: All systems not noted in ROS Statement are negative. Past Medical History Past Medical History: No Reported History Additional Past Medical History / Comment(s): alcoholism History of Any Multi-Drug Resistant Organisms: None Reported Past Surgical History: Tonsillectomy, Tubal Ligation Additional Past Surgical History / Comment(s): natural childbirth x3 Past Psychological History: Anxiety, Panic Disorder Smoking Status: Current every day smoker Past Alcohol Use History: Daily, Heavy Past Drug Use History: None Reported - Past Family History Mother Family Medical History: Cancer Additional Family Medical History / Comment(s): left mastectomy, bone cancer Father Additional Family Medical History / Comment(s): anxiety General Exam Limitations: no limitations General appearance: lethargic Head exam: Present: atraumatic, normocephalic Eye exam: Present: PERRL, EOMI, scleral icterus ENT exam: Present: mucous membranes dry, other (Black necrotic film on the tongue) Respiratory exam: Present: normal lung sounds bilaterally. Absent: respiratory distress Cardiovascular Exam: Present: normal rhythm, tachycardia GI/Abdominal exam: Present: soft, distended, organomegaly Extremities exam: Present: normal inspection, normal capillary refill. Absent: pedal edema, calf tenderness Neurological exam: Present: alert. Absent: motor sensory deficit Skin exam: Present: warm, dry, intact Course Vital Signs 08/29/18 08/29/18 08/29/18 17:11 18:59 19:40 Temperature 98.9 F 99.2 F 98 F Pulse Rate 121 H 111 H 117 H Respiratory 18 20 20 Rate Blood Pressure 93/64 95/59 90/73 O2 Sat by Pulse 100 100 94 L Oximetry EKG Findings - EKG Comments: EKG Findings:: EKG: Sinus tachycardia, rate of 111, NE interval 116, QRS duration 86, QTC 489, no ST segment elevation. Medical Decision Making - Medical Decision Making 47-year-old female presenting with jaundice. Patient is cachectic with a distended abdomen. She has scleral icterus. She is tachycardic with borderline blood pressure. Patient has significant laboratory abnormalities, she is pancytopenic, hyponatremic, hypokalemic. She is acidotic with CO2 14 in the lactic acid is 6.0. She has a creatinine of 3.0. Total bili is 16.6, she is elevated ammonia at 59, albumin is 2.4. She is in liver failure with an elevated INR. She has an ultrasound showing echogenic bile, enlarged liver suggestive of fatty infiltrate. There is concern for acute cholecystitis given the thickened gallbladder wall however patient has no focal pain in this region. I did discuss this with Dr. Colvin, he will follow this patient on her admission. No need for surgical intervention acutely. Patient's given IV hydration, she is given lactulose, started on Ativan according to DALTON, she is admitted to Dr. Coreas with both general surgery and gastroenterology on consult. - Lab Data Result diagrams: 08/29/18 18:45 08/29/18 18:45 Lab Results 08/29/18 08/29/18 08/29/18 Range/Units 18:45 18:45 18:45 WBC 11.8 H (3.8-10.6) k/uL RBC 2.28 L (3.80-5.40) m/uL Hgb 8.5 L (11.4-16.0) gm/dL Hct 26.1 L (34.0-46.0) % MCV 114.4 H (80.0-100.0) fL MCH 37.4 H (25.0-35.0) pg MCHC 32.7 (31.0-37.0) g/dL RDW 17.3 H (11.5-15.5) % Plt Count 230 (150-450) k/uL Anisocytosis Slight Macrocytosis Marked A PT 22.7 H (9.0-12.0) sec INR 2.3 H (<1.2) APTT 64.9 H (22.0-30.0) sec Sodium 132 L (137-145) mmol/L Potassium 3.2 L (3.5-5.1) mmol/L Chloride 97 L (98-107) mmol/L Carbon Dioxide 14 L (22-30) mmol/L Anion Gap 21 mmol/L BUN 11 (7-17) mg/dL Creatinine 3.03 H (0.52-1.04) mg/dL Est GFR (CKD-EPI)AfAm 20 (>60 ml/min/1.73 sqM) Est GFR (CKD-EPI)NonAf 18 (>60 ml/min/1.73 sqM) Glucose 79 (74-99) mg/dL Plasma Lactic Acid Maxime (0.7-2.0) mmol/L Calcium 8.0 L (8.4-10.2) mg/dL Magnesium 1.9 (1.6-2.3) mg/dL Total Bilirubin 16.6 H* (0.2-1.3) mg/dL AST 335 H (14-36) U/L ALT 74 H (9-52) U/L Alkaline Phosphatase 242 H (38-126) U/L Ammonia (<30) umol/L Troponin I (0.000-0.034) ng/mL Total Protein 6.4 (6.3-8.2) g/dL Albumin 2.4 L (3.5-5.0) g/dL Acetaminophen <10.0 ug/mL Serum Alcohol 11 mg/dL 08/29/18 08/29/18 Range/Units 18:45 19:00 WBC (3.8-10.6) k/uL RBC (3.80-5.40) m/uL Hgb (11.4-16.0) gm/dL Hct (34.0-46.0) % MCV (80.0-100.0) fL MCH (25.0-35.0) pg MCHC (31.0-37.0) g/dL RDW (11.5-15.5) % Plt Count (150-450) k/uL Anisocytosis Macrocytosis PT (9.0-12.0) sec INR (<1.2) APTT (22.0-30.0) sec Sodium (137-145) mmol/L Potassium (3.5-5.1) mmol/L Chloride (98-107) mmol/L Carbon Dioxide (22-30) mmol/L Anion Gap mmol/L BUN (7-17) mg/dL Creatinine (0.52-1.04) mg/dL Est GFR (CKD-EPI)AfAm (>60 ml/min/1.73 sqM) Est GFR (CKD-EPI)NonAf (>60 ml/min/1.73 sqM) Glucose (74-99) mg/dL Plasma Lactic Acid Maxime 6.0 H* (0.7-2.0) mmol/L Calcium (8.4-10.2) mg/dL Magnesium (1.6-2.3) mg/dL Total Bilirubin (0.2-1.3) mg/dL AST (14-36) U/L ALT (9-52) U/L Alkaline Phosphatase (38-126) U/L Ammonia 59 H (<30) umol/L Troponin I <0.012 (0.000-0.034) ng/mL Total Protein (6.3-8.2) g/dL Albumin (3.5-5.0) g/dL Acetaminophen ug/mL Serum Alcohol mg/dL Critical Care Time Critical Care Time: Yes Total Critical Care Time: 35 Disposition Clinical Impression: Hyponatremia, Dehydration, Acute renal failure, Liver failure, Alcoholic hepatitis, Alcoholism Disposition: ADMITTED IP TO THIS [facility] Condition: Serious Is patient prescribed a controlled substance at d/c from ED?: No Referrals: Carla Ngo MD [Primary Care Provider] - 1-2 days Decision to Admit Reason: Admit from EC Decision Date: 08/29/18 Decision Time: 20:33
[2018-08-29 19:09] LABS: ALT 74 U/L (9-52); AST 335 U/L (14-36); Acetaminophen <10.0 ug/mL; African American GFR (CKD) 20 (>60 ml/min/1.73 sqM); Albumin 2.4 g/dL (3.5-5.0); Alcohol 11 mg/dL; Alkaline Phosphatase 242 U/L (38-126); Anion Gap 21 mmol/L; Anisocytosis Slight; Basophils % (A) 0 %; Blood Urea Nitrogen 11 mg/dL (7-17); Carbon Dioxide 14 mmol/L (22-30); Chloride 97 mmol/L (98-107); Eosinophils # (A) 0.1 k/uL (0-0.7); Eosinophils % (A) 1 %; Glucose 79 mg/dL (74-99); HCT 26.1 % (34.0-46.0); HGB 8.5 gm/dL (11.4-16.0); Lymphocytes % (A) 9 %; MCH 37.4 pg (25.0-35.0); MCHC 32.7 g/dL (31.0-37.0); MCV 114.4 fL (80.0-100.0); Macrocytosis Marked; Magnesium 1.9 mg/dL (1.6-2.3); Mean Platelet Volume 8.2; Monocytes # (A) 0.8 k/uL (0-1.0); Monocytes % (A) 7 %; Neutrophils # (A) 9.6 k/uL (1.3-7.7); Neutrophils % (A) 81 %; Platelet Count 230 k/uL (150-450); Potassium 3.2 mmol/L (3.5-5.1); RBC 2.28 m/uL (3.80-5.40); RDW 17.3 % (11.5-15.5); Sodium 132 mmol/L (137-145); Total Protein 6.4 g/dL (6.3-8.2); WBC 11.8 k/uL (3.8-10.6)
--- NOTE | 2018-08-29 19:21 | XR ---
EXAMINATION TYPE: XR chest 2V DATE OF EXAM: 08/29/2018 COMPARISON: NONE HISTORY: Weakness TECHNIQUE: Frontal and lateral views of the chest are obtained. FINDINGS: Heart and mediastinum are normal. Lungs are clear. Diaphragm is normal. Bony thorax is int act. Pulmonary vascularity is normal. IMPRESSION: Normal chest. Normal heart.
[2018-08-29 19:22] LABS: Total Bilirubin 16.6 mg/dL (0.2-1.3)
[2018-08-29] MEDS ORDERED: SODIUM CHLORIDE 0.9% 1,000 ML IV ONE (19:23)
[2018-08-29 19:29] LABS: INR 2.3 (<1.2); Prothrombin Time 22.7 sec (9.0-12.0)
[2018-08-29] MEDS ORDERED: LORazepam 2 MG/ML INJ IV PRN ×3 (19:37)
[2018-08-29] MEDS ORDERED: THIAMINE 100 MG/ML 2 ML VIAL IM STA (19:37)
[2018-08-29 19:50] LABS: Partial Thromboplastin Time 64.9 sec (22.0-30.0)
[2018-08-29] MEDS ORDERED: LACTULOSE 20 GM/30 ML CUP PO ONE (20:00)
--- NOTE | 2018-08-29 20:15 | US ---
EXAMINATION TYPE: US gallbladder DATE OF EXAM: 08/29/2018 COMPARISON: CLINICAL HISTORY: Pain. Jaundice x 3 weeks, no pain EXAM MEASUREMENTS: Liver Length: 19.5 cm Gallbladder Wall: 0.4 cm CBD: 0.4 cm CHD: 0.4 cm Right Kidney: 12.6 x 5.8 x 4.7 cm Pancreas: wnl Liver: Increased attenuation, decreased visualization of vessels suggestive of fatty infiltrate. En larged in size. Gallbladder: Appears enlarged in size = 10.6 cm. Visual internal echoes seen. Thickened wall and a ppear edematous. Evidence for sonographic Joyner's sign: neg CBD: wnl CHD: wnl Right Kidney: Prominent pyramids. Lobular in contour- making it difficult to determine presence or absence of lesions. FF seen adjacent to liver IMPRESSION: There is gallbladder wall thickening and edema consistent with cholecystitis. Echogenic b ile. No dilated ducts. No free fluid.
[2018-08-29] MEDS ORDERED: NALOXONE 0.4 MG/ML 1 ML VIAL IV PRN (20:22)
[2018-08-29] MEDS ORDERED: SODIUM CHLORIDE 0.9% 500 ML 500 ML IV ONE (20:25)
[2018-08-29 20:32] LABS: Polychromasia Present
[2018-08-29 20:33] LABS: Target Cells Present
[2018-08-29] MEDS: POTASSIUM CHLORIDE 10 MEQ in WATER FOR INJECTION 1 100ML.BAG IVPB SCH ×3 (20:40→23:11)
[2018-08-29] MEDS: SODIUM CHLORIDE 0.9% 1,000 ML IV SCH (20:42)
[2018-08-29] MEDS: PHYTONADIONE ORAL 5 MG/5 ML ORAL.SYRG PO SCH (23:12)
--- NOTE | 2018-08-30 01:05 | HP ---
HISTORY AND PHYSICAL CHIEF COMPLAINT: Weakness and foot infection. HISTORY OF PRESENT ILLNESS: This 47-year-old woman with a past medical history of alcoholism, history of tonsillectomy history of anxiety, panic disease, history of nicotine dependence, heavy alcohol intake and foot infection, being followed by Dr. Carla Ngo in the outpatient setting, apparently had topical treatment of fungal infection. Now the patient is complaining of yellowish of the eyes and tiredness weakness. The patient apparently drinks about 6 glass of red wine every day according to the family and the patient also complains of abdomen distention. Patient came to [facility] and was admitted for further evaluation and treatment. At the time of admission, the WBC found to be 11.8, hemoglobin 8.5, INR 2.3, sodium 130, at 3.2. Lactic acid found to be 6 and total bilirubin 16.6, alkaline phosphatase 242. Patient was admitted to the hospital for further evaluation and treatment. There is no history of fever, rigors. No history of headache, loss of consciousness or seizures. PAST MEDICAL HISTORY: Of alcoholism, history of fungal infection foot, anxiety, panic disorder, nicotine dependence. MEDICATIONS ARE: Thiamine 100 mg q.h.s. ALLERGIES: LATEX AND PENICILLIN. FAMILY HISTORY: History of cancer, mastectomy and bone cancer. SOCIAL HISTORY: History of smoking. History of alcohol intake. REVIEW OF SYSTEMS: ENT: No diminished vision. No diminished hearing. CARDIOVASCULAR: No angina or palpitations. RESPIRATIONS: As mentioned earlier. GASTROINTESTINAL: No nausea or vomiting. no dysuria. NERVOUS SYSTEM: No numbness or weakness. ALLERGY/IMMUNOLOGY: No asthma or hayfever. MUSCULOSKELETAL as mentioned earlier. HEMATOLOGY/ONCOLOGY: No history of anemia. ENDOCRINE: No history of diabetes or hypothyroid. CONSTITUTIONAL: As mentioned earlier. RHEUMATOLOGY: Negative. DERMATOLOGY: Negative. PSYCHIATRIC: As mentioned earlier. PHYSICAL EXAMINATION: GENERAL: Alert and oriented x3. VITAL SIGNS: Pulse 120, blood pressure 120/83, respiration 18, temperature 98 degrees, pulse ox 97% on room air. HEENT is conjunctivae deep icteric. Oral mucosa moist. NECK is jugular venous distention in the root of the neck. CARDIOVASCULAR system is S1, S2 muffled. Ejection systolic murmur. RESPIRATIONS: Breath sounds diminished in the bases. A few scattered rhonchi and crackles. ABDOMEN: Soft, obese. Ascites present. Hepatosplenomegaly hard liver nodule are present. LEGS: Bilateral leg edema. NERVOUS SYSTEM as mentioned earlier. Moves all 4 limbs. No focal motor deficits. Lymphatics: No lymph nodes palpable in the neck, axillae or groin. SKIN: No ulcer, rash or bleeding. JOINTS: No active arthropathy. Hepatic flap present. LABS: WBC 11.8, hemoglobin 9.5, INR 2.2, sodium 130, potassium 3.2, creatinine 3.03, AST is 335, ALT is 74, bilirubin 16.6. ASSESSMENT: 1. Change in mental status acute hepatic encephalopathy. 2. Acute hepatic failure. 3. Hyperbilirubinemia. 4. Possible alcoholic hepatitis. 5. Elevated lactic acid with possible sepsis. 6. Hyponatremia. 7. Hypokalemia. 8. Increased creatinine with acute renal failure with acute tubular necrosis and possible hepatorenal syndrome. 9. Coagulopathy secondary to chronic liver disease. 10.Increased WBC. 11.Anemia. 12.Macrocytosis. 13.History of fungal infection of the foot. 14.Anxiety, panic disorder. 15.History of nicotine dependence. RECOMMENDATIONS AND DISCUSSION: In this 47-year-old woman who presented with multiple complex medical issues, we will monitor the patient closely, continue the current medications, management and symptomatic treatment. I recommend to avoid hepatotoxic medications. Otherwise, repeat labs. Gastroenterology evaluation. Also recommend broad-spectrum IV antibiotics, obtain the cultures. I would also recommend consultation with , Infectious Disease as well. Prognosis guarded because of multiple complex medical issues. Further recommendations to follow. A copy of this forwarded to Dr. Carla Ngo who is the primary physician. MMELIGIOL / JOSEPHN: [id number] / LAZARUS
[2018-08-30] MEDS: POTASSIUM CHLORIDE 10 MEQ in WATER FOR INJECTION 1 100ML.BAG IVPB SCH (04:33)
[2018-08-30 06:36] LABS: Anisocytosis Slight; Basophils % (A) 0 %; Eosinophils # (A) 0.1 k/uL (0-0.7); Eosinophils % (A) 1 %; HCT 27.5 % (34.0-46.0); HGB 8.6 gm/dL (11.4-16.0); Hypochromasia Slight; Lymphocytes # (A) 1.3 k/uL (1.0-4.8); Lymphocytes % (A) 12 %; MCH 36.4 pg (25.0-35.0); MCHC 31.4 g/dL (31.0-37.0); MCV 116.1 fL (80.0-100.0); Monocytes # (A) 0.7 k/uL (0-1.0); Monocytes % (A) 6 %; Neutrophils # (A) 8.3 k/uL (1.3-7.7); Neutrophils % (A) 78 %; Platelet Count 224 k/uL (150-450); RBC 2.37 m/uL (3.80-5.40); RDW 17.6 % (11.5-15.5); WBC 10.6 k/uL (3.8-10.6)
[2018-08-30 06:41] LABS: Macrocytosis Marked
[2018-08-30 06:51] LABS: INR 2.9 (<1.2); Prothrombin Time 27.8 sec (9.0-12.0)
[2018-08-30 06:52] LABS: Albumin 2.3 g/dL (3.5-5.0); Calcium 7.6 mg/dL (8.4-10.2); Potassium 3.4 mmol/L (3.5-5.1); Total Protein 6.2 g/dL (6.3-8.2)
[2018-08-30 07:03] LABS: Total Bilirubin 16.2 mg/dL (0.2-1.3)
[2018-08-30] MEDS: SODIUM CHLORIDE 0.9% 1,000 ML IV SCH ×2 (08:58→21:49)
[2018-08-30] MEDS: THIAMINE 100 MG TAB PO SCH ×2 (08:58→17:35)
[2018-08-30] MEDS: PANTOPRAZOLE 40 MG/10 ML VIAL IV SCH (08:59)
[2018-08-30] MEDS: PHYTONADIONE ORAL 5 MG/5 ML ORAL.SYRG PO SCH (09:24)
[2018-08-30] MEDS ORDERED: LACTULOSE 200 GM/300 ML (FROM 1/2 GAL JUG) RECTAL PRN (14:40)
--- NOTE | 2018-08-30 15:27 | P.GSCN ---
History of Present Illness Consult date: 08/30/18 History of present illness: This 47-year-old female who presented to the emergency room with mental status change abdominal pain and distention. She has known alcoholic cirrhosis. There was a finding of a thickened gallbladder wall on ultrasound however patient is not complaining of any right upper quadrant pain. She has been afebrile. History is obtained per chart review due to patient's altered mental status. Past Medical History Past Medical History: No Reported History Additional Past Medical History / Comment(s): alcoholism History of Any Multi-Drug Resistant Organisms: None Reported Past Surgical History: Tonsillectomy, Tubal Ligation Additional Past Surgical History / Comment(s): natural childbirth x3 Past Psychological History: Anxiety, Panic Disorder Smoking Status: Current every day smoker Past Alcohol Use History: Daily, Heavy Past Drug Use History: None Reported - Past Family History Mother Family Medical History: Cancer Additional Family Medical History / Comment(s): left mastectomy, bone cancer Father Additional Family Medical History / Comment(s): anxiety Medications and Allergies Home Medications Medication Instructions Recorded Confirmed Type Thiamine [Vitamin B-1] 100 mg PO HS 08/29/18 08/29/18 History Allergies Allergy/AdvReac Type Severity Reaction Status Date / Time latex Allergy Rash/Hives Verified 08/29/18 17:56 Penicillins Allergy Swelling Verified 08/29/18 17:56 Surgical - Exam Osteopathic Statement: *. No significant issues noted on an osteopathic structural exam other than those noted in the History and Physical/Consult. Vital Signs Temp Pulse Resp BP Pulse Ox 98.9 F 121 H 18 93/64 100 08/29/18 17:11 08/29/18 17:11 08/29/18 17:11 08/29/18 17:11 08/29/18 17:11 - General cachectic, chronically ill - Eyes icteric - Neck trachea midline - Respiratory normal expansion, normal respiratory effort - Cardiovascular Rhythm: regular - Abdomen Soft distended nontender to palpation - Neurologic disoriented - Psychiatric AAO 1 Results - Labs 08/30/18 06:13 08/30/18 06:13 Abnormal Lab Results - Last 24 Hours (Table) 08/29/18 08/29/18 08/29/18 Range/Units 18:45 18:45 18:45 WBC 11.8 H (3.8-10.6) k/uL RBC 2.28 L (3.80-5.40) m/uL Hgb 8.5 L (11.4-16.0) gm/dL Hct 26.1 L (34.0-46.0) % MCV 114.4 H (80.0-100.0) fL MCH 37.4 H (25.0-35.0) pg RDW 17.3 H (11.5-15.5) % Neutrophils # 9.6 H (1.3-7.7) k/uL Macrocytosis Marked A PT 22.7 H (9.0-12.0) sec INR 2.3 H (<1.2) APTT 64.9 H (22.0-30.0) sec Sodium 132 L (137-145) mmol/L Potassium 3.2 L (3.5-5.1) mmol/L Chloride 97 L (98-107) mmol/L Carbon Dioxide 14 L (22-30) mmol/L Creatinine 3.03 H (0.52-1.04) mg/dL Glucose (74-99) mg/dL Plasma Lactic Acid Maxime (0.7-2.0) mmol/L Calcium 8.0 L (8.4-10.2) mg/dL Total Bilirubin 16.6 H* (0.2-1.3) mg/dL AST 335 H (14-36) U/L ALT 74 H (9-52) U/L Alkaline Phosphatase 242 H (38-126) U/L Ammonia (<30) umol/L Total Protein (6.3-8.2) g/dL Albumin 2.4 L (3.5-5.0) g/dL 08/29/18 08/29/18 08/30/18 Range/Units 19:00 22:54 06:13 WBC (3.8-10.6) k/uL RBC 2.37 L (3.80-5.40) m/uL Hgb 8.6 L (11.4-16.0) gm/dL Hct 27.5 L (34.0-46.0) % MCV 116.1 H (80.0-100.0) fL MCH 36.4 H (25.0-35.0) pg RDW 17.6 H (11.5-15.5) % Neutrophils # 8.3 H (1.3-7.7) k/uL Macrocytosis Marked A PT (9.0-12.0) sec INR (<1.2) APTT (22.0-30.0) sec Sodium (137-145) mmol/L Potassium (3.5-5.1) mmol/L Chloride (98-107) mmol/L Carbon Dioxide (22-30) mmol/L Creatinine (0.52-1.04) mg/dL Glucose (74-99) mg/dL Plasma Lactic Acid Maxime 6.0 H* 4.4 H* (0.7-2.0) mmol/L Calcium (8.4-10.2) mg/dL Total Bilirubin (0.2-1.3) mg/dL AST (14-36) U/L ALT (9-52) U/L Alkaline Phosphatase (38-126) U/L Ammonia 59 H (<30) umol/L Total Protein (6.3-8.2) g/dL Albumin (3.5-5.0) g/dL 08/30/18 08/30/18 08/30/18 Range/Units 06:13 06:13 06:13 WBC (3.8-10.6) k/uL RBC (3.80-5.40) m/uL Hgb (11.4-16.0) gm/dL Hct (34.0-46.0) % MCV (80.0-100.0) fL MCH (25.0-35.0) pg RDW (11.5-15.5) % Neutrophils # (1.3-7.7) k/uL Macrocytosis PT 27.8 H (9.0-12.0) sec INR 2.9 H (<1.2) APTT (22.0-30.0) sec Sodium 135 L (137-145) mmol/L Potassium 3.4 L (3.5-5.1) mmol/L Chloride (98-107) mmol/L Carbon Dioxide 15 L (22-30) mmol/L Creatinine 2.39 H (0.52-1.04) mg/dL Glucose 70 L (74-99) mg/dL Plasma Lactic Acid Maxime (0.7-2.0) mmol/L Calcium 7.6 L (8.4-10.2) mg/dL Total Bilirubin 16.2 H* (0.2-1.3) mg/dL AST 430 H (14-36) U/L ALT 86 H (9-52) U/L Alkaline Phosphatase 234 H (38-126) U/L Ammonia 116 H (<30) umol/L Total Protein 6.2 L (6.3-8.2) g/dL Albumin 2.3 L (3.5-5.0) g/dL 08/30/18 08/30/18 Range/Units 07:25 11:47 WBC (3.8-10.6) k/uL RBC (3.80-5.40) m/uL Hgb (11.4-16.0) gm/dL Hct (34.0-46.0) % MCV (80.0-100.0) fL MCH (25.0-35.0) pg RDW (11.5-15.5) % Neutrophils # (1.3-7.7) k/uL Macrocytosis PT (9.0-12.0) sec INR (<1.2) APTT (22.0-30.0) sec Sodium (137-145) mmol/L Potassium (3.5-5.1) mmol/L Chloride (98-107) mmol/L Carbon Dioxide (22-30) mmol/L Creatinine (0.52-1.04) mg/dL Glucose (74-99) mg/dL Plasma Lactic Acid Maxime 2.9 H* 3.0 H* (0.7-2.0) mmol/L Calcium (8.4-10.2) mg/dL Total Bilirubin (0.2-1.3) mg/dL AST (14-36) U/L ALT (9-52) U/L Alkaline Phosphatase (38-126) U/L Ammonia (<30) umol/L Total Protein (6.3-8.2) g/dL Albumin (3.5-5.0) g/dL Diabetes panel 08/29/18 08/30/18 Range/Units 18:45 06:13 Sodium 132 L 135 L (137-145) mmol/L Potassium 3.2 L 3.4 L (3.5-5.1) mmol/L Chloride 97 L 107 (98-107) mmol/L Carbon Dioxide 14 L 15 L (22-30) mmol/L BUN 11 11 (7-17) mg/dL Creatinine 3.03 H 2.39 H (0.52-1.04) mg/dL Glucose 79 70 L (74-99) mg/dL Calcium 8.0 L 7.6 L (8.4-10.2) mg/dL AST 335 H 430 H (14-36) U/L ALT 74 H 86 H (9-52) U/L Alkaline Phosphatase 242 H 234 H (38-126) U/L Total Protein 6.4 6.2 L (6.3-8.2) g/dL Albumin 2.4 L 2.3 L (3.5-5.0) g/dL Calcium panel 08/29/18 08/30/18 Range/Units 18:45 06:13 Calcium 8.0 L 7.6 L (8.4-10.2) mg/dL Albumin 2.4 L 2.3 L (3.5-5.0) g/dL Pituitary panel 08/29/18 08/30/18 Range/Units 18:45 06:13 Sodium 132 L 135 L (137-145) mmol/L Potassium 3.2 L 3.4 L (3.5-5.1) mmol/L Chloride 97 L 107 (98-107) mmol/L Carbon Dioxide 14 L 15 L (22-30) mmol/L BUN 11 11 (7-17) mg/dL Creatinine 3.03 H 2.39 H (0.52-1.04) mg/dL Glucose 79 70 L (74-99) mg/dL Calcium 8.0 L 7.6 L (8.4-10.2) mg/dL Adrenal panel 08/29/18 08/30/18 Range/Units 18:45 06:13 Sodium 132 L 135 L (137-145) mmol/L Potassium 3.2 L 3.4 L (3.5-5.1) mmol/L Chloride 97 L 107 (98-107) mmol/L Carbon Dioxide 14 L 15 L (22-30) mmol/L BUN 11 11 (7-17) mg/dL Creatinine 3.03 H 2.39 H (0.52-1.04) mg/dL Glucose 79 70 L (74-99) mg/dL Calcium 8.0 L 7.6 L (8.4-10.2) mg/dL Total Bilirubin 16.6 H* 16.2 H* (0.2-1.3) mg/dL AST 335 H 430 H (14-36) U/L ALT 74 H 86 H (9-52) U/L Alkaline Phosphatase 242 H 234 H (38-126) U/L Total Protein 6.4 6.2 L (6.3-8.2) g/dL Albumin 2.4 L 2.3 L (3.5-5.0) g/dL Assessment and Plan Assessment: Acute on chronic alcoholic liver failure Plan: Patient does not appear to have clinical signs consistent with acute cholecystitis at this time. Thickening of the gallbladder wall and ascites is an expected finding with acute on chronic liver failure. Patient is not a surgical candidate due to her decompensated cirrhosis. Patient has a very poor prognosis. No plans for acute surgical intervention. Should concern for any need for surgical intervention arise patient would need to be transferred to a tertiary care facility due to her liver failure. Recommend alcohol cessation and follow-up with a transplant surgeon for further evaluation.
[2018-08-30 15:52] VITALS: BMI 13.7
[2018-08-30] MEDS: LACTULOSE 20 GM/30 ML CUP PO SCH ×2 (17:34→21:47)
--- NOTE | 2018-08-30 17:40 | P.CONS ---
History of Present Illness - Reason for Consult Consult date: 08/30/18 Alcoholic hepatitis Requesting physician: Rashaad Coreas - Chief Complaint Jaundice, weakness - History of Present Illness 47-year-old female with a medical history significant for alcohol abuse, tobacco abuse, anxiety and previous hospitalization for alcoholic hepatitis who presents to the hospital due to complaints of weakness and jaundice. Of note, history is been taken in conversation with the patient as well as from review of the medical record and in conversation with medical team to the patient's poor mentation. The patient reports that she has been suffering symptoms over the past 1-2 weeks prior to presentation. Over this time she has noted increasing jaundice and icterus, as well as feeling weak and fatigued and noticing dark urine. Patient had associated nausea with no vomiting. No fevers or chills reported. The patient also had increasing abdominal distention over this time. The patient does drink daily, previously reporting daily consumption of liquor and currently 6 glasses of wine daily. On presentation WBC 10.6, hemoglobin 8.6 from 8.5 previously, platelet count 224,000, INR 2.9, total bilirubin 16.2, alkaline phosphatase 234, AST 430, ALT 36, acetaminophen level less than 11, ammonia 116 and ultrasound gallbladder gallbladder wall thickening consistent with cholecystitis with no dilated ducts noted. Review of Systems REVIEW OF SYSTEMS: CONSTITUTIONAL: Denies any fevers, chills, weight change but did report fatigue. CARDIOVASCULAR: Denies any chest pain, palpitations high or low blood pressures RESPIRATORY: Denies any shortness of breath, hemoptysis or cough. GENITOURINARY: No dysuria or hematuria. MUSCULOSKELETAL: No weakness reported. SKIN: Denies any new rashes or lesions, but has noted jaundice. PSYCHIATRIC: Patient does have a history of anxiety. NEUROLOGY: Denies headache, denies any new focal deficits. EARS/NOSE/THROAT: No recent hearing change, congestion, nasal discharge or sore throat. EYES: No pain in eyes, discharge or change in vision, but has noted icterus. GASTROINTESTINAL: As per HPI. Past Medical History Past Medical History: No Reported History Additional Past Medical History / Comment(s): alcoholism History of Any Multi-Drug Resistant Organisms: None Reported Past Surgical History: Tonsillectomy, Tubal Ligation Additional Past Surgical History / Comment(s): natural childbirth x3 Past Anesthesia/Blood Transfusion Reactions: No Reported Reaction, Unable to Obtain Past Psychological History: Anxiety, Panic Disorder Smoking Status: Current every day smoker Past Alcohol Use History: Daily, Heavy Additional Past Alcohol Use History / Comment(s): Current ETOH; amount varies Past Drug Use History: None Reported - Past Family History Mother Family Medical History: Cancer Additional Family Medical History / Comment(s): left mastectomy, bone cancer Father Additional Family Medical History / Comment(s): anxiety Medications and Allergies Home Medications Medication Instructions Recorded Confirmed Type Thiamine [Vitamin B-1] 100 mg PO HS 08/29/18 08/29/18 History Allergies Allergy/AdvReac Type Severity Reaction Status Date / Time latex Allergy Rash/Hives Verified 08/29/18 17:56 Penicillins Allergy Swelling Verified 08/29/18 17:56 Physical Exam Vitals: Vital Signs Temp Pulse Pulse Resp BP BP Pulse Ox 08/30/18 15:24 97.4 F L 111 H 18 108/75 08/30/18 15:22 97.4 F L 111 H 18 108/75 08/30/18 13:30 111 H 21 100/66 08/30/18 13:00 112 H 20 88/59 08/30/18 12:30 110 H 17 101/65 08/30/18 12:00 112 H 24 91/68 08/30/18 11:30 113 H 24 111/77 08/30/18 11:00 114 H 22 116/78 08/30/18 10:30 113 H 21 110/77 08/30/18 10:00 116 H 18 115/79 08/30/18 09:30 117 H 12 108/79 08/30/18 09:00 118 H 11 L 94/59 08/30/18 08:40 110 H 18 94/59 96 08/30/18 08:30 110 H 19 96/68 98 08/30/18 08:25 115 H 18 111/75 99 08/30/18 05:57 105 H 20 107/79 100 08/30/18 03:00 93 20 116/73 100 08/30/18 00:28 111 H 14 108/77 98 08/29/18 23:08 115 H 16 111/68 99 08/29/18 21:46 120 H 18 110/83 97 08/29/18 20:48 121 H 16 107/80 98 08/29/18 19:40 98 F 117 H 20 90/73 94 L 08/29/18 18:59 99.2 F 111 H 20 95/59 100 On physical examination, patient appears comfortable in no apparent distress. HEAD: Normocephalic, atraumatic. EYES: Scleral icterus. No conjunctival injection. MOUTH: No lesions, tongue midline. NECK: Trachea midline, no gross abnormalities. CHEST: Clear to auscultation with no wheezing or rhonchi appreciated. HEART: Regular rate and rhythm. ABDOMEN: Soft, distended with positive fluid wave. Bowel sounds are positive. No organomegaly. No guarding or rigidity. EXTREMITIES: No pedal edema. SKIN: No rashes, no jaundice. NEUROLOGIC: Alert and oriented to person with somnolence and asterixis noted. No focal deficits. Results CBC & Chem 7: 08/30/18 06:13 08/30/18 06:13 Labs: Abnormal Lab Results - Last 24 Hours (Table) 08/29/18 08/29/18 08/29/18 Range/Units 18:45 18:45 18:45 WBC 11.8 H (3.8-10.6) k/uL RBC 2.28 L (3.80-5.40) m/uL Hgb 8.5 L (11.4-16.0) gm/dL Hct 26.1 L (34.0-46.0) % MCV 114.4 H (80.0-100.0) fL MCH 37.4 H (25.0-35.0) pg RDW 17.3 H (11.5-15.5) % Neutrophils # 9.6 H (1.3-7.7) k/uL Macrocytosis Marked A PT 22.7 H (9.0-12.0) sec INR 2.3 H (<1.2) APTT 64.9 H (22.0-30.0) sec Sodium 132 L (137-145) mmol/L Potassium 3.2 L (3.5-5.1) mmol/L Chloride 97 L (98-107) mmol/L Carbon Dioxide 14 L (22-30) mmol/L Creatinine 3.03 H (0.52-1.04) mg/dL Glucose (74-99) mg/dL Plasma Lactic Acid Maxime (0.7-2.0) mmol/L Calcium 8.0 L (8.4-10.2) mg/dL Total Bilirubin 16.6 H* (0.2-1.3) mg/dL AST 335 H (14-36) U/L ALT 74 H (9-52) U/L Alkaline Phosphatase 242 H (38-126) U/L Ammonia (<30) umol/L Total Protein (6.3-8.2) g/dL Albumin 2.4 L (3.5-5.0) g/dL 08/29/18 08/29/18 08/30/18 Range/Units 19:00 22:54 06:13 WBC (3.8-10.6) k/uL RBC 2.37 L (3.80-5.40) m/uL Hgb 8.6 L (11.4-16.0) gm/dL Hct 27.5 L (34.0-46.0) % MCV 116.1 H (80.0-100.0) fL MCH 36.4 H (25.0-35.0) pg RDW 17.6 H (11.5-15.5) % Neutrophils # 8.3 H (1.3-7.7) k/uL Macrocytosis Marked A PT (9.0-12.0) sec INR (<1.2) APTT (22.0-30.0) sec Sodium (137-145) mmol/L Potassium (3.5-5.1) mmol/L Chloride (98-107) mmol/L Carbon Dioxide (22-30) mmol/L Creatinine (0.52-1.04) mg/dL Glucose (74-99) mg/dL Plasma Lactic Acid Maxime 6.0 H* 4.4 H* (0.7-2.0) mmol/L Calcium (8.4-10.2) mg/dL Total Bilirubin (0.2-1.3) mg/dL AST (14-36) U/L ALT (9-52) U/L Alkaline Phosphatase (38-126) U/L Ammonia 59 H (<30) umol/L Total Protein (6.3-8.2) g/dL Albumin (3.5-5.0) g/dL 08/30/18 08/30/18 08/30/18 Range/Units 06:13 06:13 06:13 WBC (3.8-10.6) k/uL RBC (3.80-5.40) m/uL Hgb (11.4-16.0) gm/dL Hct (34.0-46.0) % MCV (80.0-100.0) fL MCH (25.0-35.0) pg RDW (11.5-15.5) % Neutrophils # (1.3-7.7) k/uL Macrocytosis PT 27.8 H (9.0-12.0) sec INR 2.9 H (<1.2) APTT (22.0-30.0) sec Sodium 135 L (137-145) mmol/L Potassium 3.4 L (3.5-5.1) mmol/L Chloride (98-107) mmol/L Carbon Dioxide 15 L (22-30) mmol/L Creatinine 2.39 H (0.52-1.04) mg/dL Glucose 70 L (74-99) mg/dL Plasma Lactic Acid Maxime (0.7-2.0) mmol/L Calcium 7.6 L (8.4-10.2) mg/dL Total Bilirubin 16.2 H* (0.2-1.3) mg/dL AST 430 H (14-36) U/L ALT 86 H (9-52) U/L Alkaline Phosphatase 234 H (38-126) U/L Ammonia 116 H (<30) umol/L Total Protein 6.2 L (6.3-8.2) g/dL Albumin 2.3 L (3.5-5.0) g/dL 08/30/18 08/30/18 Range/Units 07:25 11:47 WBC (3.8-10.6) k/uL RBC (3.80-5.40) m/uL Hgb (11.4-16.0) gm/dL Hct (34.0-46.0) % MCV (80.0-100.0) fL MCH (25.0-35.0) pg RDW (11.5-15.5) % Neutrophils # (1.3-7.7) k/uL Macrocytosis PT (9.0-12.0) sec INR (<1.2) APTT (22.0-30.0) sec Sodium (137-145) mmol/L Potassium (3.5-5.1) mmol/L Chloride (98-107) mmol/L Carbon Dioxide (22-30) mmol/L Creatinine (0.52-1.04) mg/dL Glucose (74-99) mg/dL Plasma Lactic Acid Maxime 2.9 H* 3.0 H* (0.7-2.0) mmol/L Calcium (8.4-10.2) mg/dL Total Bilirubin (0.2-1.3) mg/dL AST (14-36) U/L ALT (9-52) U/L Alkaline Phosphatase (38-126) U/L Ammonia (<30) umol/L Total Protein (6.3-8.2) g/dL Albumin (3.5-5.0) g/dL US - abdomen: report reviewed (ultrasound gallbladder significant for galbladder wall thickening consistent with cholecystitis with no dilated ducts noted.) Assessment and Plan (1) Alcoholic hepatitis Narrative/Plan: 47-year-old female with over a 10 year history of alcohol abuse currently drinking 6 glasses of wine daily who presented to the hospital with consolation of complaints including yellowing of her eyes, dark urine and weakness. On presentation to the hospital acetaminophen level was found to be negative with liver enzymes consistent with alcoholic hepatitis with associated elevation in INR at 2.9 and ammonia at 116. Physical exam was significant for asterixis. Current Visit: Yes Status: Acute Code(s): K70.10 - ALCOHOLIC HEPATITIS WITHOUT ASCITES SNOMED Code(s): 459362576 (2) Alcoholism Current Visit: Yes Status: Acute Code(s): F10.20 - ALCOHOL DEPENDENCE, UNCOMPLICATED SNOMED Code(s): 3078159 (3) Liver failure Current Visit: Yes Status: Acute Code(s): K72.90 - HEPATIC FAILURE, UNSPECIFIED WITHOUT COMA SNOMED Code(s): 29992390 Plan: Supportive care Continue to monitor CBC, CMP, INR, ammonia level Alcohol abstinence Monitor for signs or symptoms of withdrawal/CIWA Continue lactulose Paracentesis with fluid studies ordered Vitamin K ordered Continue to monitor symptomatically Prognosis guarded Thank you for allowing us to participate in the care of the patient we will continue to follow
--- NOTE | 2018-08-30 18:03 | PN ---
PROGRESS NOTE DATE OF SERVICE: 08/30/2018. This 47-year-old woman was being followed by Dr. Carla Ngo in the outpatient setting, had change in mental status, possible hepatic coma. Patient was treated with acute hepatic failure and hyperbilirubinemia, acute alcoholic hepatitis possibly secondary to alcohol. Patient also had features of liver cirrhosis with hepatosplenomegaly and ascites. Gastroenterology evaluation in progress. The patient closely monitored. PAST MEDICAL HISTORY: Reviewed. REVIEW OF SYSTEMS: Could not be taken. The patient is confused and stuporous. CURRENT MEDICATIONS: Reviewed and include: 1. Rocephin 1 g daily. 2. Cephalexin. 3. Ativan. 4. CIWA protocol. 5. Narcan. 6. Protonix. 7. Vitamin B1. PHYSICAL EXAM: Patient is drowsy. Pulse 110, blood pressure 100/60, respiration 21, temperature is normal. Pulse ox is 98% on room air. HEENT: Conjunctivae . NECK: No jugular venous distention. CARDIOVASCULAR: S1, S2. No S3, no S4. RESPIRATORY: Breath sounds diminished in the bases. Bilateral scattered rhonchi and crackles. ABDOMEN: Soft, obese, ascites present. Splenomegaly present. LEGS: No edema, no swelling. NERVOUS SYSTEM: Higher function as mentioned. Moves all four limbs. No focal deficits. LYMPHATICS: No lymphadenopathy in the neck, axillae, groin. SKIN: No ulcers or rash. JOINTS: No active deforming arthropathy. LABS: At this time shows WBC 10.6, sodium 135, potassium 3.4 and lactic acid is 3 and bilirubin 16.2. INR is 2.9. ASSESSMENT: 1. Change in mental status, acute hepatic encephalopathy. 2. Acute hepatic failure. 3. Metabolic encephalopathy. 4. Hyperbilirubinemia. 5. Alcoholic hepatitis. 6. Elevated lactic acid with possible sepsis. 7. Hyponatremia. 8. Hypokalemia. 9. Increased creatinine with acute renal failure with acute tubular necrosis and possibly hepatorenal syndrome. 10.Coagulopathy secondary to chronic liver disease. 11.Increased WBC. 12.Anemia. 13.Macrocytosis. 14.History of fungal infection of the foot. 15.Anemia. 16.Anxiety, panic disorder. 17.History of nicotine dependence. 18.FULL CODE. RECOMMENDATIONS AND DISCUSSION: This 47-year-old woman who presented with multiple complex medical issues, we will monitor the patient closely. Continue the current management and symptomatic treatment. Continue the cautious hydration. Monitor creatinine closely. Monitor bilirubin closely. Also ammonia is elevated today at 116. Continue with lactulose enema plus p.o. Gastroenterology evaluation. The overall prognosis extremely guarded because of multiple complex medical issues which I discussed at length with the family, who understands. Further recommendations to follow. MMTALAT / JOSEPHN: [id number] /
[2018-08-30 20:11] LABS: Glucose,Whole Blood 90 mg/dL (75-99)
--- NOTE | 2018-08-30 22:14 | P.CONS ---
History of Present Illness - Reason for Consult Consult date: 08/30/18 Sepsis Requesting physician: Rashaad Coreas - Chief Complaint Weakness and abdominal pain and jaundice x 1 week - History of Present Illness Patient is a 47-year-old -[place] female with past medical history significant for alcoholic cirrhosis, a current drinker and a history of alcoholic hepatitis in the past has been brought into the ER with chief complaints of generalized weakness poor energy abdominal discomfort and some distention along with the nausea but no vomiting no high-grade fever or chills or any diarrhea with the symptom has patient has been evaluated by the ER physician patient highest temperature has been 99 her white count was normal however lactic acid was elevated patient also have elevated liver enzymes and ultrasound of the, but has been suspicious for gallbladder wall thickening and concern for cholecystitis patient has been started on Rocephin and admitted to the hospital infectious disease has been consulted for further recommendation regarding antibiotic and possible sepsis patient herself evaluated good historian so some of the information has been obtained from family the bedside and from the nursing staff overall history remains to be limited Review of Systems Positive points has been mentioned in HPI complete review could not be obtained because of underlying condition Past Medical History Past Medical History: No Reported History Additional Past Medical History / Comment(s): alcoholism History of Any Multi-Drug Resistant Organisms: None Reported Past Surgical History: Tonsillectomy, Tubal Ligation Additional Past Surgical History / Comment(s): natural childbirth x3 Past Psychological History: Anxiety, Panic Disorder Smoking Status: Current every day smoker Past Alcohol Use History: Daily, Heavy Past Drug Use History: None Reported - Past Family History Mother Family Medical History: Cancer Additional Family Medical History / Comment(s): left mastectomy, bone cancer Father Additional Family Medical History / Comment(s): anxiety Medications and Allergies Home Medications Medication Instructions Recorded Confirmed Type Thiamine [Vitamin B-1] 100 mg PO HS 08/29/18 08/29/18 History Allergies Allergy/AdvReac Type Severity Reaction Status Date / Time latex Allergy Rash/Hives Verified 08/29/18 17:56 Penicillins Allergy Swelling Verified 08/29/18 17:56 Physical Exam Vitals: Vital Signs Temp Pulse Resp BP Pulse Ox 08/30/18 13:30 111 H 21 100/66 08/30/18 13:00 112 H 20 88/59 08/30/18 12:30 110 H 17 101/65 08/30/18 12:00 112 H 24 91/68 08/30/18 11:30 113 H 24 111/77 08/30/18 11:00 114 H 22 116/78 08/30/18 10:30 113 H 21 110/77 08/30/18 10:00 116 H 18 115/79 08/30/18 09:30 117 H 12 108/79 08/30/18 09:00 118 H 11 L 94/59 08/30/18 08:40 110 H 18 94/59 96 08/30/18 08:30 110 H 19 96/68 98 08/30/18 08:25 115 H 18 111/75 99 08/30/18 05:57 105 H 20 107/79 100 08/30/18 03:00 93 20 116/73 100 08/30/18 00:28 111 H 14 108/77 98 08/29/18 23:08 115 H 16 111/68 99 08/29/18 21:46 120 H 18 110/83 97 08/29/18 20:48 121 H 16 107/80 98 08/29/18 19:40 98 F 117 H 20 90/73 94 L 08/29/18 18:59 99.2 F 111 H 20 95/59 100 08/29/18 17:11 98.9 F 121 H 18 93/64 100 Intake and Output 08/29/18 08/30/18 08/30/18 22:59 06:59 14:59 Other: Weight 34.019 kg GENERAL DESCRIPTION: Middle-aged female lying in bed, no distress. No tachypnea or accessory muscle of respiration use. HEENT: scleral icterus. Oral mucous membrane is dry. No pharyngeal erythema or thrush NECK: Trachea central, no thyromegaly. LUNGS: Unlabored breathing. Decreased breath sounds at the base. No wheeze or crackle. HEART: S1, S2, regular rate and rhythm. No loud murmur ABDOMEN: Soft, mild distention, no tenderness , no guarding or rigidity EXTREMITIES: No edema of feet. SKIN: No rash, no masses palpable. NEUROLOGICAL: The patient is sleepy but arousable orientation could not be determined Results CBC & Chem 7: 08/30/18 06:13 08/30/18 06:13 Labs: Abnormal Lab Results - Last 24 Hours (Table) 08/29/18 08/29/1808/29/19 Range/Units 18:45 18:45 18:45 WBC 11.8 H (3.8-10.6) k/uL RBC 2.28 L (3.80-5.40) m/uL Hgb 8.5 L (11.4-16.0) gm/dL Hct 26.1 L (34.0-46.0) % MCV 114.4 H (80.0-100.0) fL MCH 37.4 H (25.0-35.0) pg RDW 17.3 H (11.5-15.5) % Neutrophils # 9.6 H (1.3-7.7) k/uL Macrocytosis Marked A PT 22.7 H (9.0-12.0) sec INR 2.3 H (<1.2) APTT 64.9 H (22.0-30.0) sec Sodium 132 L (137-145) mmol/L Potassium 3.2 L (3.5-5.1) mmol/L Chloride 97 L (98-107) mmol/L Carbon Dioxide 14 L (22-30) mmol/L Creatinine 3.03 H (0.52-1.04) mg/dL Glucose (74-99) mg/dL Plasma Lactic Acid Maxime (0.7-2.0) mmol/L Calcium 8.0 L (8.4-10.2) mg/dL Total Bilirubin 16.6 H* (0.2-1.3) mg/dL AST 335 H (14-36) U/L ALT 74 H (9-52) U/L Alkaline Phosphatase 242 H (38-126) U/L Ammonia (<30) umol/L Total Protein (6.3-8.2) g/dL Albumin 2.4 L (3.5-5.0) g/dL 08/29/18 08/29/18 08/30/18 Range/Units 19:00 22:54 06:13 WBC (3.8-10.6) k/uL RBC 2.37 L (3.80-5.40) m/uL Hgb 8.6 L (11.4-16.0) gm/dL Hct 27.5 L (34.0-46.0) % MCV 116.1 H (80.0-100.0) fL MCH 36.4 H (25.0-35.0) pg RDW 17.6 H (11.5-15.5) % Neutrophils # 8.3 H (1.3-7.7) k/uL Macrocytosis Marked A PT (9.0-12.0) sec INR (<1.2) APTT (22.0-30.0) sec Sodium (137-145) mmol/L Potassium (3.5-5.1) mmol/L Chloride (98-107) mmol/L Carbon Dioxide (22-30) mmol/L Creatinine (0.52-1.04) mg/dL Glucose (74-99) mg/dL Plasma Lactic Acid Maxime 6.0 H* 4.4 H* (0.7-2.0) mmol/L Calcium (8.4-10.2) mg/dL Total Bilirubin (0.2-1.3) mg/dL AST (14-36) U/L ALT (9-52) U/L Alkaline Phosphatase (38-126) U/L Ammonia 59 H (<30) umol/L Total Protein (6.3-8.2) g/dL Albumin (3.5-5.0) g/dL 08/30/18 08/30/18 08/30/18 Range/Units 06:13 06:13 06:13 WBC (3.8-10.6) k/uL RBC (3.80-5.40) m/uL Hgb (11.4-16.0) gm/dL Hct (34.0-46.0) % MCV (80.0-100.0) fL MCH (25.0-35.0) pg RDW (11.5-15.5) % Neutrophils # (1.3-7.7) k/uL Macrocytosis PT 27.8 H (9.0-12.0) sec INR 2.9 H (<1.2) APTT (22.0-30.0) sec Sodium 135 L (137-145) mmol/L Potassium 3.4 L (3.5-5.1) mmol/L Chloride (98-107) mmol/L Carbon Dioxide 15 L (22-30) mmol/L Creatinine 2.39 H (0.52-1.04) mg/dL Glucose 70 L (74-99) mg/dL Plasma Lactic Acid Maxime (0.7-2.0) mmol/L Calcium 7.6 L (8.4-10.2) mg/dL Total Bilirubin 16.2 H* (0.2-1.3) mg/dL AST 430 H (14-36) U/L ALT 86 H (9-52) U/L Alkaline Phosphatase 234 H (38-126) U/L Ammonia 116 H (<30) umol/L Total Protein 6.2 L (6.3-8.2) g/dL Albumin 2.3 L (3.5-5.0) g/dL 08/30/18 08/30/18 Range/Units 07:25 11:47 WBC (3.8-10.6) k/uL RBC (3.80-5.40) m/uL Hgb (11.4-16.0) gm/dL Hct (34.0-46.0) % MCV (80.0-100.0) fL MCH (25.0-35.0) pg RDW (11.5-15.5) % Neutrophils # (1.3-7.7) k/uL Macrocytosis PT (9.0-12.0) sec INR (<1.2) APTT (22.0-30.0) sec Sodium (137-145) mmol/L Potassium (3.5-5.1) mmol/L Chloride (98-107) mmol/L Carbon Dioxide (22-30) mmol/L Creatinine (0.52-1.04) mg/dL Glucose (74-99) mg/dL Plasma Lactic Acid Maxime 2.9 H* 3.0 H* (0.7-2.0) mmol/L Calcium (8.4-10.2) mg/dL Total Bilirubin (0.2-1.3) mg/dL AST (14-36) U/L ALT (9-52) U/L Alkaline Phosphatase (38-126) U/L Ammonia (<30) umol/L Total Protein (6.3-8.2) g/dL Albumin (3.5-5.0) g/dL Assessment and Plan Assessment: 1-patient being admitted to hospital with generalized weakness in this patient who did her underlying chronic cirrhosis of the liver patient currently with no high-grade fever or elevated white count however did have elevated lactic acid which could be more likely secondary to intravascular depletion rather than sepsis and the gallbladder wall thickening could be related to abdominal ascites and the patient was last tender in the right upper quadrant area 2-with history of cirrhosis ascites and abdominal discomfort underlying SBP not entirely excluded Plan: 1-await abdominal paracentesis with the fluid should be sent for cell count differential Gram stain and culture 2-empiric Rocephin 1 g daily we will follow up on clinical condition and cultures to further adjust medication if needed Thank you for this consultation will follow this patient along with you Time with Patient: Greater than 30
[2018-08-30] MEDS ORDERED: METOPROLOL TARTRATE 25 MG TAB PO STA (23:18)
[2018-08-31 01:10] LABS: Appearance,Urine Turbid (Clear); Bacteria,Urine Moderate /hpf; Bilirubin,Urine 4+ (Negative); Blood,Urine Trace (Negative); Color,Urine Dark Brown; Glucose,Urine (UA) Negative (Negative); Granular Casts,Urine 154 /lpf (0); Hyaline Casts,Urine 1018 /lpf (0-2); Ketones,Urine 1+ (Negative); Leukocyte Esterase,Urine Negative (Negative); Mucus,Urine Moderate /hpf; Nitrite,Urine Negative (Negative); Protein,Urine 1+ (Negative); RBC,Urine 10 /hpf (0-5); Specific Gravity,Urine 1.017 (1.001-1.035); Squamous Epithelial Cell,Urine 14 /hpf (0-4); WBC,Urine 45 /hpf (0-5)
[2018-08-31 03:44] LABS: Glucose,Whole Blood 109 mg/dL (75-99)
[2018-08-31 05:21] LABS: Anisocytosis Slight; Basophils % (A) 0 %; Eosinophils # (A) 0.1 k/uL (0-0.7); Eosinophils % (A) 1 %; HCT 26.7 % (34.0-46.0); HGB 8.5 gm/dL (11.4-16.0); Hypochromasia Moderate; Lymphocytes # (A) 1.1 k/uL (1.0-4.8); Lymphocytes % (A) 10 %; MCH 37.8 pg (25.0-35.0); MCV 117.9 fL (80.0-100.0); Mean Platelet Volume 8.2; Monocytes # (A) 0.7 k/uL (0-1.0); Monocytes % (A) 6 %; Neutrophils # (A) 8.6 k/uL (1.3-7.7); Neutrophils % (A) 79 %; Platelet Count 220 k/uL (150-450); RBC 2.26 m/uL (3.80-5.40); RDW 17.7 % (11.5-15.5); WBC 10.8 k/uL (3.8-10.6)
[2018-08-31 05:23] LABS: Macrocytosis Marked
[2018-08-31 05:30] LABS: INR 2.8 (<1.2); Prothrombin Time 26.9 sec (9.0-12.0); Total Protein 5.7 g/dL (6.3-8.2)
[2018-08-31 05:31] LABS: Lactic Acid, Venous 4.3 mmol/L (0.7-2.0)
[2018-08-31 05:39] LABS: Total Bilirubin 15.3 mg/dL (0.2-1.3)
[2018-08-31 06:02] LABS: Magnesium 1.7 mg/dL (1.6-2.3)
[2018-08-31] MEDS ORDERED: Magnesium Replacement Protocol 1 EACH MISC MISCELLANE PRN (06:13)
[2018-08-31] MEDS ORDERED: Potassium Replacement Protocol 1 EACH MISC MISCELLANE PRN (06:13)
--- NOTE | 2018-08-31 07:14 | CT ---
EXAMINATION TYPE: CT brain wo con DATE OF EXAM: 08/31/2018 COMPARISON: NONE HISTORY: Lethargic,confusion CT DLP: 1121 mGycm. Automated Exposure Control for Dose Reduction was Utilized. TECHNIQUE: CT scan of the head is performed without contrast. FINDINGS: There is no acute intracranial hemorrhage, mass effect, or midline shift identified. The ventricles and sulci are symmetrically prominent compatible with age-related volume loss. No suspic ious extra-axial fluid collection. There are few scattered foci of periventricular hypoattenuation ty pically related to sequela of microangiopathy. The globes are intact and the visualized sinuses are c lear. IMPRESSION: 1. No acute intracranial hemorrhage, mass effect, or midline shift is seen. 2. Degree of cerebral atrophy is slightly advanced for the patient's age. Mild nonspecific white alistair er change, most commonly on the basis of chronic microangiopathy.
[2018-08-31] MEDS: POTASSIUM CHLORIDE 10 MEQ in WATER FOR INJECTION 1 100ML.BAG IVPB SCH ×4 (07:47→11:28)
[2018-08-31] MEDS: MAGNESIUM SULFATE-D5W PMX 1 GM in DEXTROSE/WATER 1 100ML.BAG IVPB SCH ×2 (07:47→08:53)
--- NOTE | 2018-08-31 08:20 | XR ---
EXAMINATION TYPE: XR chest 1V DATE OF EXAM: 08/31/2018 COMPARISON: 08/29/2018 HISTORY: 47-year-old female tachypnea TECHNIQUE: Single frontal view of the chest is obtained. FINDINGS: Low lung volumes with crowded vascular markings. Patchy central and scattered interstitial densities are new/increased. There may be a small left pleural effusion with more confluent left basilar opacit y as well. IMPRESSION: New interstitial infiltrates, patchy left basilar opacity, and suggestion of a small left effusion. C orrelate for possible fluid overload state with developing pulmonary edema. Aspiration versus multifo crow pneumonia are additional differential considerations.
--- NOTE | 2018-08-31 08:41 | P.PN ---
Subjective This is a 47 years old female with past medical history of alcohol abuse, alcoholic hepatitis. Presents because of weakness, nausea and jaundice. On admission also patient had abdominal distention and evidence of liver disease with elevated bilirubin at 16.6, currently 15.3, elevated liver enzymes today AST 561 and ALT 112, ammonia level is going up from 116 to 148. And INR at 2.9, got 1 dose of vitamin K and today her INR is 2.8. HEENT was high at 2.3, common down to 2.18, elevated lactic acid 3.0, up to 4.3. On admission her alcohol level was 11 which is within normal limits, negative acetaminophen level at less than 10 Patient this morning is more obtunded, she is answering with morning sounds to verbal and tactile stimuli. She has negative CAT scan of the brain for acute event, however she had 2 runs of nonsustained V. tach in the morning with potassium and magnesium were low-normal, the subtotal has been replaced. EKG showed a prolonged QTc at 537, with ventricular rate of 95 BPM, this normal sinus rhythm. There is T-wave inversion in V1 and V2. [employer] has been consulted. And although creatinine is improving nephrology and has been called for possible hepatorenal syndrome. She is currently on ceftriaxone for UTI and she is on normal saline at 75 ml/h. Patient is a little tachypneic, chest x-ray showing left lower infiltrate versus pulmonary edema. We'll call for pulmonary consult as well Review of system: Nonapplicable. Medication: Ceftriaxone 1 g, lactulose 30 g, Ativan and 1 mg, magnesium sulfate per protocol, metoprolol 25 mg, Protonix 40 mg, potassium chloride per protocol, thiamine 100 mg. Objective - Vital Signs Vital signs: Vital Signs Temp 98.0 F 08/31/18 04:00 Pulse 102 H 08/31/18 04:00 Resp 18 08/31/18 04:00 BP 112/78 08/31/18 04:00 Pulse Ox 96 08/31/18 04:00 Intake & Output 08/30/18 08/31/18 08/31/18 18:59 06:59 18:59 Intake Total 500 Output Total 420 Balance 80 Intake: Intake, IV Titration 400 Amount Sodium Chloride 0.9% 1, 350 000 ml @ 75 mls/hr IV . [id number] [facility] Rx#:[id number] cefTRIAXone 1 gm In 50 Sodium Chloride 0.9% 50 ml @ 100 mls/hr IVPB Q24H [facility] Rx#:[id number] Oral 100 Output: Post Void Residual 420 Other: Voiding Method Diaper Incontinent # Voids 1 - Exam -GENERAL: The patient is obtunded -HEENT: Pupils are round, enlarged and equally reacting to light. EOMI. No scleral icterus. No conjunctival pallor. Normocephalic, atraumatic. No pharyngeal erythema. No thyromegaly. She has jaundice CARDIOVASCULAR: S1 and S2 present. No murmurs, rubs, or gallops. PULMONARY: Chest is clear to auscultation, no wheezing or crackles. -ABDOMEN: Soft, nontender, distended, normoactive bowel sounds. No palpable organomegaly. MUSCULOSKELETAL: No joint swelling or deformity. EXTREMITIES: No cyanosis, clubbing, or pedal edema. NEUROLOGICAL: Gross neurological examination did not reveal any focal deficits. SKIN: No rashes. - Labs CBC & Chem 7: 08/31/18 05:01 08/31/18 05:01 Labs: Abnormal Lab Results - Last 24 Hours (Table) 08/30/18 08/30/18 08/31/18 Range/Units 07:25 11:47 00:39 WBC (3.8-10.6) k/uL RBC (3.80-5.40) m/uL Hgb (11.4-16.0) gm/dL Hct (34.0-46.0) % MCV (80.0-100.0) fL MCH (25.0-35.0) pg RDW (11.5-15.5) % Neutrophils # (1.3-7.7) k/uL Macrocytosis PT (9.0-12.0) sec INR (<1.2) Potassium (3.5-5.1) mmol/L Chloride (98-107) mmol/L Carbon Dioxide (22-30) mmol/L Creatinine (0.52-1.04) mg/dL POC Glucose (mg/dL) (75-99) mg/dL Plasma Lactic Acid Maxime 2.9 H* 3.0 H* (0.7-2.0) mmol/L Calcium (8.4-10.2) mg/dL Total Bilirubin (0.2-1.3) mg/dL AST (14-36) U/L ALT (9-52) U/L Alkaline Phosphatase (38-126) U/L Ammonia (<30) umol/L Total Protein (6.3-8.2) g/dL Albumin (3.5-5.0) g/dL Urine Appearance Turbid H (Clear) Urine Protein 1+ H (Negative) Urine Ketones 1+ H (Negative) Urine Blood Trace H (Negative) Urine Bilirubin 4+ H (Negative) Urine RBC 10 H (0-5) /hpf Urine WBC 45 H (0-5) /hpf Urine WBC Clumps Many H (None) /hpf Ur Squamous Epith Cells 14 H (0-4) /hpf Urine Bacteria Moderate H (None) /hpf Hyaline Casts 1018 H (0-2) /lpf Urine Mucus Moderate H (None) /hpf 08/31/18 08/31/18 08/31/18 Range/Units 03:31 05:01 05:01 WBC (3.8-10.6) k/uL RBC (3.80-5.40) m/uL Hgb (11.4-16.0) gm/dL Hct (34.0-46.0) % MCV (80.0-100.0) fL MCH (25.0-35.0) pg RDW (11.5-15.5) % Neutrophils # (1.3-7.7) k/uL Macrocytosis PT 26.9 H (9.0-12.0) sec INR 2.8 H (<1.2) Potassium 3.0 L (3.5-5.1) mmol/L Chloride 111 H (98-107) mmol/L Carbon Dioxide 15 L (22-30) mmol/L Creatinine 2.18 H (0.52-1.04) mg/dL POC Glucose (mg/dL) 109 H (75-99) mg/dL Plasma Lactic Acid Maxime (0.7-2.0) mmol/L Calcium 8.0 L (8.4-10.2) mg/dL Total Bilirubin 15.3 H* (0.2-1.3) mg/dL AST 561 H (14-36) U/L ALT 112 H (9-52) U/L Alkaline Phosphatase 202 H (38-126) U/L Ammonia (<30) umol/L Total Protein 5.7 L (6.3-8.2) g/dL Albumin 2.0 L (3.5-5.0) g/dL Urine Appearance (Clear) Urine Protein (Negative) Urine Ketones (Negative) Urine Blood (Negative) Urine Bilirubin (Negative) Urine RBC (0-5) /hpf Urine WBC (0-5) /hpf Urine WBC Clumps (None) /hpf Ur Squamous Epith Cells (0-4) /hpf Urine Bacteria (None) /hpf Hyaline Casts (0-2) /lpf Urine Mucus (None) /hpf 08/31/18 08/31/18 Range/Units 05:01 05:01 WBC 10.8 H (3.8-10.6) k/uL RBC 2.26 L (3.80-5.40) m/uL Hgb 8.5 L (11.4-16.0) gm/dL Hct 26.7 L (34.0-46.0) % MCV 117.9 H (80.0-100.0) fL MCH 37.8 H (25.0-35.0) pg RDW 17.7 H (11.5-15.5) % Neutrophils # 8.6 H (1.3-7.7) k/uL Macrocytosis Marked A PT (9.0-12.0) sec INR (<1.2) Potassium (3.5-5.1) mmol/L Chloride (98-107) mmol/L Carbon Dioxide (22-30) mmol/L Creatinine (0.52-1.04) mg/dL POC Glucose (mg/dL) (75-99) mg/dL Plasma Lactic Acid Maxime 4.3 H* (0.7-2.0) mmol/L Calcium (8.4-10.2) mg/dL Total Bilirubin (0.2-1.3) mg/dL AST (14-36) U/L ALT (9-52) U/L Alkaline Phosphatase (38-126) U/L Ammonia 148 H (<30) umol/L Total Protein (6.3-8.2) g/dL Albumin (3.5-5.0) g/dL Urine Appearance (Clear) Urine Protein (Negative) Urine Ketones (Negative) Urine Blood (Negative) Urine Bilirubin (Negative) Urine RBC (0-5) /hpf Urine WBC (0-5) /hpf Urine WBC Clumps (None) /hpf Ur Squamous Epith Cells (0-4) /hpf Urine Bacteria (None) /hpf Hyaline Casts (0-2) /lpf Urine Mucus (None) /hpf Microbiology - Last 24 Hours (Table) 08/29/18 18:45 Blood Culture - Preliminary Blood No Growth after 24 hours Assessment and Plan Assessment: Alcoholic hepatitis Hepatic encephalopathy Ascites, secondary to above Acute kidney injury, possible hepatorenal syndrome Elevated Lactic acid Coagulopathy Nonsustained ventricular tachycardia Alcohol abuse Plan: This is a 47 is old female who presents with alcoholic hepatitis, coagulopathy and renal failure. Continue with lactulose. GI consult. Patient was placed on CIWA protocol but she got only 1 dose of Ativan. Computed tomography scan of t he brain on 08/31/2018 showing no acute abnormality. patient had a short run of non-sustained v. tach, [employer] has been consulted for this. also nephrology evaluation is requested for renal failure. deep monitor inr and liver enzymes.Labs and medication were reviewed.. Continue same treatment. Continue with symptomatic treatment. Resume home medication. Monitor lytes and vitals. DVT and GI prophylaxis. Further recommendations of the clinical course of the patient DVT prophylaxis: No heparin in view of coagulopathy GI Prophylaxis: Protonix Prognosis is guarded
[2018-08-31] MEDS ORDERED: LACTULOSE 20 GM/30 ML CUP PO SCH ×2 (09:00→16:00)
[2018-08-31] MEDS: THIAMINE 100 MG TAB PO SCH (09:34)
[2018-08-31] MEDS: PHYTONADIONE ORAL 5 MG/5 ML ORAL.SYRG PO SCH (09:35)
[2018-08-31] MEDS ORDERED: DEXTROSE 5% IN WATER 1,000 ML with SODIUM BICARB (1 MEQ/ML) 150 ML IV SCH (10:00)
[2018-08-31 11:18] LABS: Hepatitis A Antibody IgM Non-Reactive (Non-Reactive); Hepatitis B Core IgM Non-Reactive (Non-Reactive)
[2018-08-31] MEDS: PANTOPRAZOLE 40 MG/10 ML VIAL IV SCH (11:50)
[2018-08-31] MEDS ORDERED: LACTULOSE 200 GM/300 ML (FROM 1/2 GAL JUG) RECTAL SCH (12:00)
--- NOTE | 2018-08-31 12:22 | XR ---
EXAMINATION TYPE: XR KUB portable DATE OF EXAM: 08/31/2018 COMPARISON: 10/19/2016 HISTORY: 47-year-old female NG tube placement TECHNIQUE: Single portable supine view FINDINGS: NG tube courses below the diaphragm and is looped once within the stomach. Patchy retrocardiac opacit y. Some air-filled bowel loops are scattered in the visualized mid abdomen. Supine imaging limited fo r assessment of free air. IMPRESSION: Satisfactory NG tube. Patchy retrocardiac/left basilar atelectasis or infiltrate.
--- NOTE | 2018-08-31 12:43 | PN ---
PROGRESS NOTE DATE OF SERVICE: 08/31/2018 REASON FOR FOLLOWUP: Possible with question of cholecystitis. INTERVAL HISTORY: The patient is currently afebrile. The patient remains to be sleepy, lethargic, and did not answer any questions. No nausea, vomiting or diarrhea reported by nursing staff. History remains to be limited. PHYSICAL EXAMINATION: On examination, blood pressure is 95/61 with a pulse of 104, temperature 98.9. She is 100% on room air. General description is a middle aged female lying in bed in no distress. RESPIRATORY SYSTEM: Unlabored breathing, clear to auscultation anteriorly. HEART: S1, S2. Regular rate and rhythm. ABDOMEN: Soft, mildly distended. EXTREMITIES: No edema of the feet. LABS: Hemoglobin 8.5, white count 10.8. BUN of 12, creatinine 2.18. DIAGNOSTIC IMPRESSION AND PLAN: Patient admitted to the hospital with generalized weakness with mildly elevated white count. The patient did have . Surgery is on the case. cirrhosis and ascites. Currently covered with Rocephin. Will monitor the clinical course closely. Continue supportive care. MMODL / IJN: [id number] /
--- NOTE | 2018-08-31 12:46 | P.CRDCN ---
History of Present Illness History of present illness: This is a 47-year-old -[place] female past medical history significant for alcohol abuse and alcoholic hepatitis who presented to the hospital last week with complaints of yellowing in her eyes for 2 weeks with altered mental status and abdominal discomfort. The patient is very obtunded and not responding. Information is obtained from the chart. Ultrasound of her gallbladder revealed wall thickening and edema consistent with cholecystitis. Surgery has seen her and is recommending no acute surgical intervention at this time. GI is recommending a paracentesis when her INR is therapeutic. We have been asked to see her in consultation due to a run of suspected ventricular tachycardia. Telemetry strips reviewed reveal a wide QRS with initial appearance of VT however when mapped out QRS complexes are in a regular pattern suggestive of artifact. NOT VT. Pt is seen and examined laying in bed with head of the bed elevated. She is mostly unresponsive and not verbal. Primary care team is at the bedside as well and has ordered a CT of the brain that revealed no acute intracranial process with cerebral atrophy with mild non-specific white matter changes. Initial EKG on admission reveals sinus tachycardia heart rate of 111 T- wave abnormalities noted in the inferior leads as well as high precordial leads. Repeat obtain this morning reveals T-wave inversions anteriorly. Laboratory data reviewed, WBC 10.8, hemoglobin 8.5, platelets 220, INR 2.8, sodium 139, potassium 3.0, creatinine 2.18, lactic acid 3.8, magnesium 1.7, total bilirubin 15.3, AST 561, aVL T 112, alkaline phosphatase 202, ammonia 148. Unable to obtain accurate review of systems secondary to altered mental status. GENERAL: This is a 47-year-old -[place] female in no apparent distress at the time of my examination. HEENT: Head is atraumatic, normocephalic. Pupils are equal, round. Sclerae jau ndice. Mucous membranes of the mouth are moist. Neck is supple. There is no jugular venous distention. No carotid bruit is heard. LUNGS: Clear to auscultation no wheezes, rales or rhonchi. No chest wall tenderness is noted on palpation or with deep breathing. Diminished bilaterally. HEART: Regular rate and rhythm without murmurs, rubs or gallops. S1 and S2 heard. ABDOMEN: Soft, nontender, distended. Bowel sounds are heard. EXTREMITIES: No evidence of peripheral edema and no calf tenderness noted. VASCULAR: Radial and dorsalis pedis pulses palpated, no evidence of clubbing. NEUROLOGIC: Patient is obtunded. ASSESSMENT Hepatic encephalopathy Ascites Wide complex tachycardia thought to be VT, however is artifact EKG changes possibly secondary to underlying coronary disease Hypokalemia Leukocytosis Coagulopathy Liver failure Acute kidney failure Lactic acidosis Anemia Urinary tract infection PLAN Telemetry tracings reviewed and did not reveal ventricular tachycardia. Discussed with Dr. Douglas. Recommend conservative medical approach in response to EKG changes. Initiate on inderal 10 mg BID. Consideration for DNR status should be discussed with the family. No further cardiac intervention at this time, thank you for this consultation. Nurse Practitioner note has been reviewed, I agree with a documented findings and plan of care. Patient was seen and examined. Past Medical History Past Medical History: No Reported History Additional Past Medical History / Comment(s): alcoholism History of Any Multi-Drug Resistant Organisms: None Reported Past Surgical History: Tonsillectomy, Tubal Ligation Additional Past Surgical History / Comment(s): natural childbirth x3 Past Anesthesia/Blood Transfusion Reactions: No Reported Reaction, Unable to Obtain Past Psychological History: Anxiety, Panic Disorder Smoking Status: Current every day smoker Past Alcohol Use History: Daily, Heavy Past Drug Use History: None Reported - Past Family History Mother Family Medical History: Cancer Additional Family Medical History / Comment(s): left mastectomy, bone cancer Father Additional Family Medical History / Comment(s): anxiety Medications and Allergies Home Medications Medication Instructions Recorded Confirmed Type Thiamine [Vitamin B-1] 100 mg PO HS 08/29/18 08/29/18 History Allergies Allergy/AdvReac Type Severity Reaction Status Date / Time latex Allergy Rash/Hives Verified 08/29/18 17:56 Penicillins Allergy Swelling Verified 08/29/18 17:56 Physical Exam Vitals: Vital Signs Temp Pulse Pulse Resp BP BP Pulse Ox 08/31/18 12:00 98.9 F 104 H 17 95/61 100 08/31/18 04:00 98.0 F 102 H 18 112/78 96 08/30/18 23:49 122 H 24 113/71 97 08/30/18 20:00 97.5 F L 125 H 16 106/71 97 08/30/18 19:36 97.6 F 120 H 12 117/78 97 08/30/18 15:24 97.4 F L 111 H 18 108/75 08/30/18 15:22 97.4 F L 111 H 18 108/75 08/30/18 13:30 111 H 21 100/66 08/30/18 13:00 112 H 20 88/59 08/30/18 12:30 110 H 17 101/65 Intake and Output 08/30/18 08/31/18 08/31/18 22:59 06:59 14:59 Intake Total 100 400 Output Total 420 Balance 100 -20 Intake: Intake, IV Titration 400 Amount Sodium Chloride 0.9% 1, 350 000 ml @ 75 mls/hr IV . [id number] [facility] Rx#:[id number] cefTRIAXone 1 gm In 50 Sodium Chloride 0.9% 50 ml @ 100 mls/hr IVPB Q24H [facility] Rx#:[id number] Oral 100 Output: Post Void Residual 420 Other: Voiding Method Diaper Incontinent # Voids 1 1 Results 08/31/18 05:01 08/31/18 05:01 Cardiac Enzymes 08/31/18 Range/Units 05:01 AST 561 H (14-36) U/L Coagulation 08/31/18 Range/Units 05:01 PT 26.9 H (9.0-12.0) sec CBC 08/31/18 Range/Units 05:01 WBC 10.8 H (3.8-10.6) k/uL RBC 2.26 L (3.80-5.40) m/uL Hgb 8.5 L (11.4-16.0) gm/dL Hct 26.7 L (34.0-46.0) % Plt Count 220 (150-450) k/uL Comprehensive Metabolic Panel 08/31/18 Range/Units 05:01 Sodium 139 (137-145) mmol/L Potassium 3.0 L (3.5-5.1) mmol/L Chloride 111 H (98-107) mmol/L Carbon Dioxide 15 L (22-30) mmol/L BUN 12 (7-17) mg/dL Creatinine 2.18 H (0.52-1.04) mg/dL Glucose 90 (74-99) mg/dL Calcium 8.0 L (8.4-10.2) mg/dL AST 561 H (14-36) U/L ALT 112 H (9-52) U/L Alkaline Phosphatase 202 H (38-126) U/L Total Protein 5.7 L (6.3-8.2) g/dL Albumin 2.0 L (3.5-5.0) g/dL Current Medications Generic Name Dose Route Start Last Admin Trade Name Freq PRN Reason Stop Dose Admin Ceftriaxone Sodium 1 gm/ 50 mls @ 100 mls/hr 08/29/18 23:45 08/31/18 01:36 Sodium Chloride IVPB 100 mls/hr Q24H [facility] Administration Sodium Bicarbonate 150 ml/ 1,150 mls @ 50 mls/hr 08/31/18 10:00 08/31/18 1 1:27 Dextrose/Water IV 50 mls/hr .Q23H [facility] Administration Lactulose 200 gm 08/31/18 12:00 Cephulac RECTAL Q6HR [facility] Lorazepam 1 mg 08/29/18 19:37 08/29/18 19:53 Ativan IV 1 mg Q2HR PRN Administration CIWA 8 or 9 Lorazepam 1 mg 08/29/18 19:37 Ativan IV Q1HR PRN CIWA 10 to 15 Lorazepam 2 mg 08/29/18 19:37 Ativan IV 08/31/18 19:37 Q10M PRN CIWA 16 or higher Miscellaneous Information 1 each 08/31/18 06:13 Magnesium Per Protocol MISCELLANE DAILY PRN Per Protocol Protocol Miscellaneous Information 1 each 08/31/18 06:13 Potassium Per Protocol MISCELLANE DAILY PRN Per Protocol Protocol Naloxone HCl 0.2 mg 08/29/18 20:22 Narcan IV Q2M PRN Opioid Reversal Pantoprazole Sodium 40 mg 08/30/18 09:00 08/31/18 11:50 Protonix IV 40 mg DAILY [facility] Administration Phytonadione 5 mg 08/29/18 22:45 08/31/18 09:35 Vitamin K Oral PO Not Given DAILY [facility] Propranolol HCl 10 mg 08/31/18 21:00 Inderal PO BID [facility] Thiamine HCl 100 mg 08/30/18 07:30 08/31/18 09:34 Vitamin B-1 PO Not Given BID-W/MEALS [facility] Intake and Output 08/30/18 08/31/18 08/31/18 22:59 06:59 14:59 Intake Total 100 400 Output Total 420 Balance 100 -20 Intake: Intake, IV Titration 400 Amount Sodium Chloride 0.9% 1, 350 000 ml @ 75 mls/hr IV . [id number] [facility] Rx#:[id number] cefTRIAXone 1 gm In 50 Sodium Chloride 0.9% 50 ml @ 100 mls/hr IVPB Q24H [facility] Rx#:[id number] Oral 100 Output: Post Void Residual 420 Other: Voiding Method Diaper Incontinent # Voids 1 1 08/31/18 05:01 08/31/18 05:01
[2018-08-31 13:44] LABS: Glucose,Whole Blood 97 mg/dL (75-99)
[2018-08-31 14:21] LABS: Magnesium 2.5 mg/dL (1.6-2.3); Potassium 4.1 mmol/L (3.5-5.1)
[2018-08-31] MEDS ORDERED: SODIUM CHLORIDE 0.9% 1,000 ML IV ONE (14:23)
--- NOTE | 2018-08-31 16:22 | CONS ---
CONSULTATION REASON FOR CONSULT: Renal failure. HISTORY OF PRESENT ILLNESS: The patient is a 47-year-old female with a previous history of ethanol abuse, anxiety disorder. The patient was admitted with increased weakness and decreased mentation. Her bilirubin on admission was 16.6. Lactic acid was elevated at 6.0. The patient did receive IV fluid bolus and was maintained at 75 mL an hour of saline which was then decreased with concerns for possible fluid overload. Her mentation has been significantly decreased. Patient has been unresponsive since admission. Ammonia level was elevated at 148 and it has been progressively increasing. Blood pressure has been borderline with systolic around 113-106 mmHg. Urine output cannot be easily assessed. However, patient has had incontinence. Bladder scan showed fluid. However, patient also has ascites. Serum creatinine was 2.18, which is down from 3.03 on initial admission on 08/29/2018. Serum creatinine previously was 0.7 in 2017. There is no evidence of diarrhea and patient is afebrile. PAST MEDICAL HISTORY: History of ethanol abuse, anxiety disorder, history of recent fungal infection of the foot status post topical treatment. ALLERGIES: Include LATEX AND PENICILLIN. MEDICATIONS: Medications at home included thiamine. SOCIAL HISTORY: As mentioned, the patient has a history of a heavy alcohol abuse as well as smoking. REVIEW OF SYSTEMS: Cannot be obtained. PHYSICAL EXAMINATION: On examination, patient is currently unresponsive. She appears comfortable. She is not in any acute distress. Blood pressure this morning was 112/78, heart rate 102 per minute. She is afebrile. Examination of the heart S1, S2. Examination of the lungs, bilateral breath sounds are heard. Abdomen is soft, distended with evidence of ascites. Examination of lower extremities shows no significant edema. Lab show sodium 139, potassium 3.0, chloride 111, CO2 is 15, BUN 12, serum creatinine 2.18. Lactic acid 4.3 this morning. Total bilirubin 15.3, albumin of 2.0. The patient had a brain CT which showed no acute bleed. ASSESSMENT: 1. Acute kidney injury, appears to be acute tubular necrosis, possibly hepatorenal. However, renal function is improving since admission. It is difficult to assess patient's urine output and she does have ascites. Therefore, the bladder scan is not accurate. I will restart her on IV fluids as patient does not appear to be significantly hypervolemic. 2. Lactic acidosis secondary to hypoperfusion currently improving status post IV fluid boluses, currently improved. 3. Non-gap metabolic acidosis, multifactorial secondary to renal failure as well as a component of anion gap metabolic acidosis from lactic acidosis. 4. Hypokalemia secondary to decreased oral intake and continue supplementation. 5. Hyperbilirubinemia with history of liver cirrhosis secondary to ETOH abuse, being followed by Gastroenterology. 6. Obtundation secondary to hepatic encephalopathy. The patient has received lactulose which we will continue. PLAN: Add IV bicarb. Continue with the lactulose. Avoid nephrotoxic agents. Avoid hypotension. I will also add midodrine. If patient is oliguric if her renal function worsens, we will add Sandostatin and albumin as well for hepatorenal syndrome. Thank you for this consultation. We will continue to follow the patient with you during her hospitalization. MMELIGIOL / IJN: [id number] /
--- NOTE | 2018-08-31 16:41 | P.PN ---
Subjective Progress Note Date: 08/31/18 Principal diagnosis: Decompensated alcoholic cirrhosis, hepatic encephalopathy Patient seen lying in bed. No acute events overnight per nursing. Not interactive. Objective - Vital Signs Vital signs: Vital Signs Temp 98.9 F 08/31/18 12:00 Pulse 104 H 08/31/18 12:00 Resp 17 08/31/18 12:00 BP 95/61 08/31/18 12:00 Pulse Ox 100 08/31/18 12:00 Intake & Output 08/30/18 08/31/18 08/31/18 18:59 06:59 18:59 Intake Total 500 Output Total 420 Balance 80 Intake: Intake, IV Titration 400 Amount Sodium Chloride 0.9% 1, 350 000 ml @ 75 mls/hr IV . [id number] [facility] Rx#:[id number] cefTRIAXone 1 gm In 50 Sodium Chloride 0.9% 50 ml @ 100 mls/hr IVPB Q24H [facility] Rx#:[id number] Oral 100 Output: Post Void Residual 420 Other: Voiding Method Diaper Incontinent # Voids 1 - Exam On physical examination, patient appears comfortable in no apparent distress. HEAD: Normocephalic, atraumatic. EYES: No scleral icterus. No conjunctival injection. MOUTH: No lesions, tongue midline. NECK: Trachea midline, no gross abnormalities. CHEST: Clear to auscultation with no wheezing or rhonchi appreciated. HEART: Regular rate and rhythm. ABDOMEN: Soft, obese. Bowel sounds are positive. No organomegaly. No guarding or rigidity. EXTREMITIES: No pedal edema. SKIN: No rashes, no jaundice. NEUROLOGIC: Somnolent, minimally arousable, not interactive. - Labs CBC & Chem 7: 08/31/18 05:01 08/31/18 13:39 Labs: Abnormal Lab Results - Last 24 Hours (Table) 08/30/18 08/31/18 08/31/18 Range/Units 11:47 00:39 03:31 WBC (3.8-10.6) k/uL RBC (3.80-5.40) m/uL Hgb (11.4-16.0) gm/dL Hct (34.0-46.0) % MCV (80.0-100.0) fL MCH (25.0-35.0) pg RDW (11.5-15.5) % Neutrophils # (1.3-7.7) k/uL Macrocytosis PT (9.0-12.0) sec INR (<1.2) Potassium (3.5-5.1) mmol/L Chloride (98-107) mmol/L Carbon Dioxide (22-30) mmol/L Creatinine (0.52-1.04) mg/dL POC Glucose (mg/dL) 109 H (75-99) mg/dL Plasma Lactic Acid Maxime 3.0 H* (0.7-2.0) mmol/L Calcium (8.4-10.2) mg/dL Total Bilirubin (0.2-1.3) mg/dL AST (14-36) U/L ALT (9-52) U/L Alkaline Phosphatase (38-126) U/L Ammonia (<30) umol/L Total Protein (6.3-8.2) g/dL Albumin (3.5-5.0) g/dL Urine Appearance Turbid H (Clear) Urine Protein 1+ H (Negative) Urine Ketones 1+ H (Negative) Urine Blood Trace H (Negative) Urine Bilirubin 4+ H (Negative) Urine RBC 10 H (0-5) /hpf Urine WBC 45 H (0-5) /hpf Urine WBC Clumps Many H (None) /hpf Ur Squamous Epith Cells 14 H (0-4) /hpf Urine Bacteria Moderate H (None) /hpf Hyaline Casts 1018 H (0-2) /lpf Urine Mucus Moderate H (None) /hpf 08/31/18 08/31/18 08/31/18 Range/Units 05:01 05:01 05:01 WBC (3.8-10.6) k/uL RBC (3.80-5.40) m/uL Hgb (11.4-16.0) gm/dL Hct (34.0-46.0) % MCV (80.0-100.0) fL MCH (25.0-35.0) pg RDW (11.5-15.5) % Neutrophils # (1.3-7.7) k/uL Macrocytosis PT 26.9 H (9.0-12.0) sec INR 2.8 H (<1.2) Potassium 3.0 L (3.5-5.1) mmol/L Chloride 111 H (98-107) mmol/L Carbon Dioxide 15 L (22-30) mmol/L Creatinine 2.18 H (0.52-1.04) mg/dL POC Glucose (mg/dL) (75-99) mg/dL Plasma Lactic Acid Maxime 4.3 H* (0.7-2.0) mmol/L Calcium 8.0 L (8.4-10.2) mg/dL Total Bilirubin 15.3 H* (0.2-1.3) mg/dL AST 561 H (14-36) U/L ALT 112 H (9-52) U/L Alkaline Phosphatase 202 H (38-126) U/L Ammonia 148 H (<30) umol/L Total Protein 5.7 L (6.3-8.2) g/dL Albumin 2.0 L (3.5-5.0) g/dL Urine Appearance (Clear) Urine Protein (Negative) Urine Ketones (Negative) Urine Blood (Negative) Urine Bilirubin (Negative) Urine RBC (0-5) /hpf Urine WBC (0-5) /hpf Urine WBC Clumps (None) /hpf Ur Squamous Epith Cells (0-4) /hpf Urine Bacteria (None) /hpf Hyaline Casts (0-2) /lpf Urine Mucus (None) /hpf 08/31/18 08/31/18 Range/Units 05:01 08:46 WBC 10.8 H (3.8-10.6) k/uL RBC 2.26 L (3.80-5.40) m/uL Hgb 8.5 L (11.4-16.0) gm/dL Hct 26.7 L (34.0-46.0) % MCV 117.9 H (80.0-100.0) fL MCH 37.8 H (25.0-35.0) pg RDW 17.7 H (11.5-15.5) % Neutrophils # 8.6 H (1.3-7.7) k/uL Macrocytosis Marked A PT (9.0-12.0) sec INR (<1.2) Potassium (3.5-5.1) mmol/L Chloride (98-107) mmol/L Carbon Dioxide (22-30) mmol/L Creatinine (0.52-1.04) mg/dL POC Glucose (mg/dL) (75-99) mg/dL Plasma Lactic Acid Maxime 3.8 H* (0.7-2.0) mmol/L Calcium (8.4-10.2) mg/dL Total Bilirubin (0.2-1.3) mg/dL AST (14-36) U/L ALT (9-52) U/L Alkaline Phosphatase (38-126) U/L Ammonia (<30) umol/L Total Protein (6.3-8.2) g/dL Albumin (3.5-5.0) g/dL Urine Appearance (Clear) Urine Protein (Negative) Urine Ketones (Negative) Urine Blood (Negative) Urine Bilirubin (Negative) Urine RBC (0-5) /hpf Urine WBC (0-5) /hpf Urine WBC Clumps (None) /hpf Ur Squamous Epith Cells (0-4) /hpf Urine Bacteria (None) /hpf Hyaline Casts (0-2) /lpf Urine Mucus (None) /hpf Microbiology - Last 24 Hours (Table) 08/31/18 00:39 Urine Culture - Preliminary Urine,Catheterized 08/29/18 18:45 Blood Culture - Preliminary Blood No Growth after 24 hours Assessment and Plan (1) Alcoholic hepatitis Narrative/Plan: 47-year-old female with over a 10 year history of alcohol abuse currently drinking 6 glasses of wine daily who presented to the hospital with consolation of complaints including yellowing of her eyes, dark urine and weakness. On presentation to the hospital acetaminophen level was found to be negative with liver enzymes consistent with alcoholic hepatitis with associated elevation in INR at 2.9 and ammonia at 116. Physical exam was significant for asterixis on presentation and somnolent today. Current Visit: Yes Status: Acute Code(s): K70.10 - ALCOHOLIC HEPATITIS WITHOUT ASCITES SNOMED Code(s): 728415830 (2) Alcoholism Current Visit: Yes Status: Acute Code(s): F10.20 - ALCOHOL DEPENDENCE, UNCOMPLICATED SNOMED Code(s): 5830172 (3) Liver failure Current Visit: Yes Status: Acute Code(s): K72.90 - HEPATIC FAILURE, UNSPECIFIED WITHOUT COMA SNOMED Code(s): 89281051 Plan: Supportive care Continue to monitor CBC, CMP, INR, ammonia level Alcohol abstinence Monitor for signs or symptoms of withdrawal/CIWA Continue lactulose, NG tube placed today Paracentesis with fluid studies ordered Vitamin K ordered Continue to monitor symptomatically Prognosis guarded Thank you for allowing us to participate in the care of the patient we will continue to follow
--- NOTE | 2018-08-31 17:28 | P.CNPUL ---
History of Present Illness Consult date: 08/31/18 Chief complaint: Altered mentation, hepatic encephalopathy History of present illness: 77-year-old -[place] female patient, history of alcoholism, came into the hospital because of jaundice, altered mentation, abdominal discomfort. The patient was also found to be very altered mentally and the patient was quite obtunded and nonresponsive. The patient was admitted to the medical floor in the pulmonary consultation was requested due to concern of a left lower lobe pneumonia. At the time of my arrival, the patient was encephalopathic and she wasn't hepatic encephalopathy. Ammonia level was quite elevated. Bilirubin was still elevated above 15. Ammonia level this morning was 148. LFTs were still abnormal. Lactic acid level was at 3.8. Creatinine was at 2.1. INR was at 2.8. CAT scan of the brain at the time of admission shows cerebral atrophy and mild nonspecific white matter disease. EKG showed sinus tachycardia. The patient was barely responsive to deep painful stimulation. NG tube was inserted and the position of the tube was confirmed by K[facility] the following that the patient was transferred to the intensive care unit. Unable to obtain any history from the patient. Based on the records, the patient has history of liver cirrhosis in addition to acute decompensation of the liver disease secondary to acute a lcoholism/alcohol hepatitis. The patient also has a an issue with wide-complex tachycardia that was felt to be VT for which cardiology has been consulted. For all this reasons a transfer this patient to the intensive care unit. Nephrology is on the case. The patient is currently on a bicarb infusion which is running at 50 mL an hour. The patient is also going to be switched to oral lactulose. She was receiving vitamin K. She is also on IV Rocephin as an empiric antibiotic coverage. No signs of any respiratory distress. No reported aspiration. Review of Systems ROS unobtainable: due to mental status Past Medical History Past Medical History: No Reported History Additional Past Medical History / Comment(s): alcoholism History of Any Multi-Drug Resistant Organisms: None Reported Past Surgical History: Tonsillectomy, Tubal Ligation Additional Past Surgical History / Comment(s): natural childbirth x3 Past Anesthesia/Blood Transfusion Reactions: No Reported Reaction, Unable to Obtain Past Psychological History: Anxiety, Panic Disorder Smoking Status: Current every day smoker Past Alcohol Use History: Daily, Heavy Past Drug Use History: None Reported - Past Family History Mother Family Medical History: Cancer Additional Family Medical History / Comment(s): left mastectomy, bone cancer Father Additional Family Medical History / Comment(s): anxiety Medications and Allergies Home Medications Medication Instructions Recorded Confirmed Type Thiamine [Vitamin B-1] 100 mg PO HS 08/29/18 08/29/18 History Allergies Allergy/AdvReac Type Severity Reaction Status Date / Time latex Allergy Rash/Hives Verified 08/29/18 17:56 Penicillins Allergy Swelling Verified 08/29/18 17:56 Physical Exam Vitals: Vital Signs Temp Pulse Resp BP Pulse Ox 08/31/18 12:00 98.9 F 104 H 17 95/61 100 08/31/18 04:00 98.0 F 102 H 18 112/78 96 08/30/18 23:49 122 H 24 113/71 97 08/30/18 20:00 97.5 F L 125 H 16 106/71 97 08/30/18 19:36 97.6 F 120 H 12 117/78 97 Intake and Output 08/31/18 08/31/18 08/31/18 06:59 14:59 22:59 Intake Total 400 Output Total 420 Balance -20 Intake: Intake, IV Titration 400 Amount Sodium Chloride 0.9% 1, 350 000 ml @ 75 mls/hr IV . [id number] [facility] Rx#:[id number] [id number] 1 gm In 50 Sodium Chloride 0.9% 50 ml @ 100 mls/hr IVPB Q24H [facility] Rx#:[id number] Output: Post Void Residual 420 Other: Voiding Method Diaper Incontinent # Voids 1 1 GENERAL: This is a 47-year-old -[place] female in no apparent distress , in fact the patient is unresponsive and she is deeply encephalopathic probably related to hepatic encephalopathy. The patient is not responsive to any verbal commands. She is barely responsive to deep painful stimulation. She looks quite cachectic and emaciated and weight all other than her stated age. Head exam was generally normal. There was no scleral icterus or corneal arcus. Mucous membranes were moist. HEENT: Head is atraumatic, normocephalic. Pupils are equal, round. Sclerae jaundice. Mucous membranes of the mouth are moist. Neck is supple. There is no jugular venous distention. No carotid bruit is heard. LUNGS: Clear to auscultation no wheezes, rales or rhonchi. No chest wall tenderness is noted on palpation or with deep breathing. Diminished bilaterally. HEART: Regular rate and rhythm without murmurs, rubs or gallops. S1 and S2 heard. ABDOMEN: Soft, nontender, distended. Bowel sounds are heard. Slightly distended and there may be a component of ascites in addition. EXTREMITIES: No evidence of peripheral edema and no calf tenderness noted. VASCULAR: Radial and dorsalis pedis pulses palpated, no evidence of clubbing. NEUROLOGIC: Patient is obtunded. Pupils are equal and reactive to light. There is positive deep painful stimulation. No Babinski. No clonus. Results - Laboratory Findings CBC and BMP: 08/31/18 05:01 08/31/18 13:39 PT/INR, D-dimer PT 26.9 sec (9.0-12.0) H 08/31/18 05:01 INR 2.8 (<1.2) H 08/31/18 05:01 Abnormal lab findings: Abnormal Labs 08/29/18 08/29/18 08/29/18 18:45 18:45 18:45 WBC 11.8 H RBC 2.28 L Hgb 8.5 L Hct 26.1 L MCV 114.4 H MCH 37.4 H RDW 17.3 H Neutrophils # 9.6 H Macrocytosis Marked A PT 22.7 H INR 2.3 H APTT 64.9 H Sodium 132 L Potassium 3.2 L Chloride 97 L Carbon Dioxide 14 L Creatinine 3.03 H Glucose POC Glucose (mg/dL) Plasma Lactic Acid Maxime Calcium 8.0 L Magnesium Total Bilirubin 16.6 H* AST 335 H ALT 74 H Alkaline Phosphatase 242 H Ammonia Total Protein Albumin 2.4 L Urine Appearance Urine Protein Urine Ketones Urine Blood Urine Bilirubin Urine RBC Urine WBC Urine WBC Clumps Ur Squamous Epith Cells Urine Bacteria Hyaline Casts Urine Mucus 08/29/18 08/29/18 08/30/18 19:00 22:54 06:13 WBC RBC 2.37 L Hgb 8.6 L Hct 27.5 L MCV 116.1 H MCH 36.4 H RDW 17.6 H Neutrophils # 8.3 H Macrocytosis Marked A PT INR APTT Sodium Potassium Chloride Carbon Dioxide Creatinine Glucose POC Glucose (mg/dL) Plasma Lactic Acid Maxime 6.0 H* 4.4 H* Calcium Magnesium Total Bilirubin AST ALT Alkaline Phosphatase Ammonia 59 H Total Protein Albumin Urine Appearance Urine Protein Urine Ketones Urine Blood Urine Bilirubin Urine RBC Urine WBC Urine WBC Clumps Ur Squamous Epith Cells Urine Bacteria Hyaline Casts Urine Mucus 08/30/18 08/30/18 08/30/18 06:13 06:13 06:13 WBC RBC Hgb Hct MCV MCH RDW Neutrophils # Macrocytosis PT 27.8 H INR 2.9 H APTT Sodium 135 L Potassium 3.4 L Chloride Carbon Dioxide 15 L Creatinine 2.39 H Glucose 70 L POC Glucose (mg/dL) Plasma Lactic Acid Maxime Calcium 7.6 L Magnesium Total Bilirubin 16.2 H* AST 430 H ALT 86 H Alkaline Phosphatase 234 H Ammonia 116 H Total Protein 6.2 L Albumin 2.3 L Urine Appearance Urine Protein Urine Ketones Urine Blood Urine Bilirubin Urine RBC Urine WBC Urine WBC Clumps Ur Squamous Epith Cells Urine Bacteria Hyaline Casts Urine Mucus 08/30/18 08/30/18 08/31/18 07:25 11:47 00:39 WBC RBC Hgb Hct MCV MCH RDW Neutrophils # Macrocytosis PT INR APTT Sodium Potassium Chloride Carbon Dioxide Creatinine Glucose POC Glucose (mg/dL) Plasma Lactic Acid Maxime 2.9 H* 3.0 H* Calcium Magnesium Total Bilirubin AST ALT Alkaline Phosphatase Ammonia Total Protein Albumin Urine Appearance Turbid H Urine Protein 1+ H Urine Ketones 1+ H Urine Blood Trace H Urine Bilirubin 4+ H Urine RBC 10 H Urine WBC 45 H Urine WBC Clumps Many H Ur Squamous Epith Cells 14 H Urine Bacteria Moderate H Hyaline Casts 1018 H Urine Mucus Moderate H 08/31/18 08/31/18 08/31/18 03:31 05:01 05:01 WBC RBC Hgb Hct MCV MCH RDW Neutrophils # Macrocytosis PT 26.9 H INR 2.8 H APTT Sodium Potassium 3.0 L Chloride 111 H Carbon Dioxide 15 L Creatinine 2.18 H Glucose POC Glucose (mg/dL) 109 H Plasma Lactic Acid Maxime Calcium 8.0 L Magnesium Total Bilirubin 15.3 H* AST 561 H ALT 112 H Alkaline Phosphatase 202 H Ammonia Total Protein 5.7 L Albumin 2.0 L Urine Appearance Urine Protein Urine Ketones Urine Blood Urine Bilirubin Urine RBC Urine WBC Urine WBC Clumps Ur Squamous Epith Cells Urine Bacteria Hyaline Casts Urine Mucus 08/31/18 08/31/18 08/31/18 05:01 05:01 08:46 WBC 10.8 H RBC 2.26 L Hgb 8.5 L Hct 26.7 L MCV 117.9 H MCH 37.8 H RDW 17.7 H Neutrophils # 8.6 H Macrocytosis Marked A PT INR APTT Sodium Potassium Chloride Carbon Dioxide Creatinine Glucose POC Glucose (mg/dL) Plasma Lactic Acid Maxime 4.3 H* 3.8 H* Calcium Magnesium Total Bilirubin AST ALT Alkaline Phosphatase Ammonia 148 H Total Protein Albumin Urine Appearance Urine Protein Urine Ketones Urine Blood Urine Bilirubin Urine RBC Urine WBC Urine WBC Clumps Ur Squamous Epith Cells Urine Bacteria Hyaline Casts Urine Mucus 08/31/18 13:39 WBC RBC Hgb Hct MCV MCH RDW Neutrophils # Macrocytosis PT INR APTT Sodium Potassium Chloride Carbon Dioxide Creatinine Glucose POC Glucose (mg/dL) Plasma Lactic Acid Maxime Calcium Magnesium 2.5 H Total Bilirubin AST ALT Alkaline Phosphatase Ammonia Total Protein Albumin Urine Appearance Urine Protein Urine Ketones Urine Blood Urine Bilirubin Urine RBC Urine WBC Urine WBC Clumps Ur Squamous Epith Cells Urine Bacteria Hyaline Casts Urine Mucus - Diagnostic Findings Chest x-ray: image reviewed Assessment and Plan Plan: 1 change in mental status secondary to hepatic encephalopathy. Serum ammonia levels are quite elevated and this is consistent with decompensated liver di sease. 2 alcoholic liver cirrhosis 3 acute alcoholic hepatitis with acute on top of chronic liver disease 4 acute coagulopathy secondary to liver failure/cirrhosis 5 jaundice with hyperbilirubinemia 6 ascites 7 acute kidney injury, consider a hepatorenal syndrome 8 non-anion gap metabolic acidosis with a serum bicarb of 15 and anion gap of 13 9 chronic macrocytic anemia secondary to liver disease 10 acute lactic acidosis improving and the lactic S level is down to 3.8 11 abnormal LFTs secondary to above 12 wide-complex tachycardia, no indication for any V. tach, consider artifact 13 Hypoproteinemia and albuminemia secondary to above Plan I transfer the patient intensive care unit for further monitoring. Aspiration precautions. Insert NG tube. Change lactulose to oral. Continue the bicarb infusion for now. Monitor the cardiac rhythm. Cardiology consultation. Continue IV Rocephin as an empiric antibiotic coverage. We'll discuss with the primary care. I think it's reasonable to transfer this patient to a tertiary care center under the care of hematology specially the patient has developed significant level of liver injury and there are signs of acute decompensated liver failure on top of her chronic alcoholic cirrhosis. We'll continue to follow. Her condition is critical. Case was discussed with the primary care and with the family at the bedside.
[2018-08-31] MEDS ORDERED: MIDODRINE 5 MG TAB PO SCH (17:30)
[2018-08-31 18:06] VITALS: BP 98/71; PULSE 100; RESP 22; TEMP 97.8
[2018-08-31] MEDS ORDERED: PROPRANOLOL 10 MG TAB PO SCH (21:00)
== END 2018-08-31 18:26 | disposition short-term general hospital (02) | DRG 441 ==
LOC: EC 17:07 → 3SCARD 20:22 → 2SICU 08-30 03:45 → 3SCARD 08-30 05:19 → 3NMEDONC 08-30 13:43 → 2SICU 08-31 12:18
PROVIDERS: ADMIT Hospitalist; ATTEND Hospitalist
DX: K72.00 Acute and subacute hepatic failure without coma (principal); G93.41 Metabolic encephalopathy; N17.0 Acute kidney failure with tubular necrosis; D68.4 Acquired coagulation factor deficiency; E87.1 Hypo-osmolality and hyponatremia; E87.2 Acidosis; I47.2 Ventricular tachycardia; N39.0 Urinary tract infection, site not specified; R64 Cachexia; Z68.1 Body mass index [BMI] 19.9 or less, adult; D75.89 Other specified diseases of blood and blood-forming organs; E86.0 Dehydration; E87.6 Hypokalemia; F10.20 Alcohol dependence, uncomplicated; F17.210 Nicotine dependence, cigarettes, uncomplicated; F41.0 Panic disorder [episodic paroxysmal anxiety]; G31.9 Degenerative disease of nervous system, unspecified; K70.11 Alcoholic hepatitis with ascites; K70.31 Alcoholic cirrhosis of liver with ascites; K81.9 Cholecystitis, unspecified; L08.9 Local infection of the skin and subcutaneous tissue, unspecified; Y90.0 Blood alcohol level of less than 20 mg/100 ml; Z88.0 Allergy status to penicillin; Z91.040 Latex allergy status; E88.09 Other disorders of plasma-protein metabolism, not elsewhere classified; Z81.8 Family history of other mental and behavioral disorders; Z80.8 Family history of malignant neoplasm of other organs or systems; D53.9 Nutritional anemia, unspecified
CPT/HCPCS: 36415; 70450; 71045; 71046; 74018; 76705; 80053; 80074; 80320; 80329; 81001; 82140; 83605; 83735; 84132; 84484; 84703; 85025; 85610; 85730; 87040; 87086; 93005; 96361; 96365; 96366; 96368; 96372; 96375; 99291